=== PATIENT | male | born 1930 | race Caucasian/White ===

== ENCOUNTER 2018-11-13 15:17 | Inpatient (IN) | payer MEDICARE ==
[2018-11-13 21:51] LABS: Glucose,Whole Blood 158 mg/dL (75-99)
[2018-11-13 22:08] VITALS: BMI 29.4
[2018-11-14 05:42] LABS: Glucose,Whole Blood 199 mg/dL (75-99)
[2018-11-14 06:49] LABS: Basophils # (A) 0.1 k/uL (0-0.2); Basophils % (A) 1 %; Eosinophils # (A) 1.4 k/uL (0-0.7); Eosinophils % (A) 16 %; HCT 50.9 % (39.0-53.0); Hypochromasia Slight; Lymphocytes # (A) 0.4 k/uL (1.0-4.8); Lymphocytes % (A) 4 %; MCHC 31.4 g/dL (31.0-37.0); MCV 95.5 fL (80.0-100.0); Mean Platelet Volume 6.7; Monocytes # (A) 0.6 k/uL (0-1.0); Monocytes % (A) 7 %; Neutrophils % (A) 70 %; Platelet Count 274 k/uL (150-450); RBC 5.33 m/uL (4.30-5.90); RDW 14.8 % (11.5-15.5); WBC 8.6 k/uL (3.8-10.6)
[2018-11-14] MEDS: INSULIN ASPART (NovoLOG) 100 UNIT/ML VIAL SQ SCH ×5 (06:52→20:57)
[2018-11-14] MEDS: SODIUM CHLORIDE 0.9% 1,000 ML IV SCH ×3 (06:53→12:59)
[2018-11-14 07:02] LABS: Albumin 3.4 g/dL (3.5-5.0); Calcium 9.2 mg/dL (8.4-10.2); Potassium 4.2 mmol/L (3.5-5.1); Total Protein 6.1 g/dL (6.3-8.2)
[2018-11-14] MEDS ORDERED: ceFAZolin 1,000 MG in SODIUM CHLORIDE 0.9% IRRIGATIO 250 ML IRRIGATION ONE (07:54)
[2018-11-14] MEDS ORDERED: ceFAZolin IN SWFI 2 GM/20 ML SYRINGE IVP ONE (07:54)
--- NOTE | 2018-11-14 10:52 | P.CRDCN ---
History of Present Illness Consult date: 11/14/18 Requesting physician: Serene Lazaro Reason for Consult (text): Bradycardia Chief complaint: Dizziness History of present illness: This is a pleasant 87-year-old gentleman who follows regularly with Dr. Gonzalez in the office. He has known history of diabetes, hyperlipidemia, hypothyroidism, second-degree type I AV block. Patient has been experiencing symptoms of dizziness. He did have a Holter monitor performed by Dr. Gongora in the office which revealed frequent episodes of AV node Wenckebach block and one pause of 2.1 seconds. Heart rate was ranging from 35-105 bpm. The patient presented to [facility] with symptoms of dizziness and lightheadedness. Patient was apparently sitting on the side of his bed when the symptoms started, he did slump over somewhat on his bed but did not lose consciousness. He was brought to the emergency room [facility] for this reason. Blood pressure on arrival there 117/56, heart rate in the 50s, respirations 20, oxygen saturation 95%. White blood cell count 7.0, hemoglobin 15.5, platelet count 291. Sodium 137, potassium 3.9, BUN 26. CT of the head was also performed which did not reveal any evidence of intracranial hemorrhage or midline shift. There was mild to moderate diffuse age-related atrophy noted. Chest x-ray showed poor inspiration with mild cardiomegaly. EKG performed at [facility] showed a Wenchebach rhythm with a heart rate of 60. An echocardiogram with Doppler study was also performed there which revealed a normal left ventricular systolic function. The physician there did have a discussion with Dr. Gongora and the decision was made to transfer the patient here to [facility] for possible pacemaker implantation. EKG on arrival here showed a normal sinus rhythm with a second-degree type I rhythm. Rhythm strips here show a sinus bradycardia with first-degree AV block and intermittent second-degree type I. Blood pressure 118/60, heart rate mainly in the low 70s, at times down into the 50s. White blood cell count 8.6, hemoglobin 16.0, platelet count 274. Sodium 138, potassium 4.2, BUN 31 and creatinine 0.9. Past Medical History Past Medical History: Diabetes Mellitus, Hyperlipidemia, Hypertension, Skin Disorder Additional Past Medical History / Comment(s): PRP Skin disorder History of Any Multi-Drug Resistant Organisms: None Reported Past Surgical History: Joint Replacement Additional Past Surgical History / Comment(s): right hip replacement Past Anesthesia/Blood Transfusion Reactions: No Reported Reaction Past Psychological History: No Psychological Hx Reported Smoking Status: Former smoker Past Drug Use History: None Reported Medications and Allergies Home Medications Medication Instructions Recorded Confirmed Type Hydrochlorothiazide 25 mg PO DAILY 11/13/18 11/14/18 History ISOtretinoin [Myorisan] 30 mg PO TID 11/13/18 11/14/18 History Insulin Glargine,Hum.rec.anlog 22 units SQ HS 11/13/18 11/14/18 History [Lantus Solostar] Insulin Lispro [humaLOG Kwikpen] 14 units SQ AC-BRKFST 11/13/18 11/14/18 History Latanoprost/Pf [Latanoprost 0.005% 1 drop BOTH EYES HS 11/13/18 11/14/18 History Eye Drop] Levothyroxine Sodium [Synthroid] 112 mcg PO DAILY 11/13/18 11/14/18 History Lovastatin [Mevacor] 10 mg PO DAILY 11/13/18 11/14/18 History Pioglitazone [Actos] 30 mg PO DAILY 11/13/18 11/14/18 History Timolol 0.5% Ophth Soln [Timoptic 1 drop INTRAOCULA BID 11/13/18 11/14/18 History 0.5% Ophth Soln] metFORMIN HCL [Glucophage] 1,000 mg PO BID 11/13/18 11/14/18 History Acitretin 50 mg PO DAILY 11/14/18 11/14/18 History Atorvastatin [Lipitor] 10 mg PO DAILY 11/14/18 11/14/18 History Insulin Lispro [humaLOG Kwikpen] 5 unit SQ AC-LUNCH 11/14/18 11/14/18 History Insulin Lispro [humaLOG Kwikpen] 11 unit SQ AC-SUPPER 11/14/18 11/14/18 History Allergies Allergy/AdvReac Type Severity Reaction Status Date / Time No Known Allergies Allergy Verified 11/14/18 09:39 Physical Exam Vitals: Vital Signs Temp Pulse Resp BP Pulse Ox 11/14/18 08:00 96.9 F L 71 22 118/65 11/14/18 04:00 97.6 F 71 18 122/59 97 11/14/18 00:00 97.8 F 72 18 106/59 100 11/13/18 21:55 98.0 F 71 18 137/74 96 11/13/18 21:45 71 18 Intake and Output 11/13/18 11/14/18 11/14/18 22:59 06:59 14:59 Intake Total 80 Balance 80 Intake: IV 80 0.9 80 Other: Voiding Method Toilet Toilet Weight 93 kg 93.1 kg PHYSICAL EXAMINATION: GENERAL: 87-year-old gentleman in no acute distress at the time of my examination HEENT: Head is atraumatic, normocephalic. Pupils equal, round. Sclera anicteric. Conjunctiva are clear. Mucous membranes of the mouth are moist. Neck is supple. There is no elevated jugular venous pressure. No carotid bruit is heard. HEART EXAMINATION: Heart S1, S2 normal. No murmur or gallop heard. CHEST EXAMINATION: Lungs are clear to auscultation and precussion. No chest wall tenderness is noted on palpation or with deep breathing. ABDOMEN: Soft, nontender. Bowel sounds are heard. No organomegaly noted. EXTREMITIES: 2+ peripheral pulses with no evidence of peripheral edema and no calf tenderness noted. NEUROLOGIC patient is awake, alert and oriented 3 . . Results 11/14/18 05:19 11/14/18 05:19 Cardiac Enzymes 11/14/18 Range/Units 05: AST 27 (17-59) U/L CBC 11/14/18 Range/Units 05:19 WBC 8.6 (3.8-10.6) k/uL RBC 5.33 (4.30-5.90) m/uL Hgb 16.0 (13.0-17.5) gm/dL Hct 50.9 (39.0-53.0) % Plt Count 274 (150-450) k/uL Comprehensive Metabolic Panel 11/14/18 Range/Units 05:19 Sodium 138 (137-145) mmol/L Potassium 4.2 (3.5-5.1) mmol/L Chloride 104 (98-107) mmol/L Carbon Dioxide 24 (22-30) mmol/L BUN 31 H (9-20) mg/dL Creatinine 0.91 (0.66-1.25) mg/dL Glucose 220 H (74-99) mg/dL Calcium 9.2 (8.4-10.2) mg/dL AST 27 (17-59) U/L ALT 37 (21-72) U/L Alkaline Phosphatase 72 (38-126) U/L Total Protein 6.1 L (6.3-8.2) g/dL Albumin 3.4 L (3.5-5.0) g/dL Current Medications Generic Name Dose Route Start Last Admin Trade Name Stephan PRN Reason Stop Dose Admin Sodium Chloride 1,000 mls @ 20 mls/hr 11/13/18 23:15 11/14/18 06:53 Saline 0.9% IV 20 mls/hr .Q24H JOSE ANTONIO Administration Sodium Chloride 1,000 mls @ 50 mls/hr 11/14/18 08:00 Saline 0.9% IV .Q20H JOSE ANTONIO Sodium Chloride 1,000 mls @ 50 mls/hr 11/14/18 08:00 Saline 0.9% IV .Q20H JOSE ANTONIO Insulin Aspart 0 unit 11/14/18 07:30 11/14/18 06:52 Novolog SQ 2 unit ACHS JOSE ANTONIO Administration Protocol Intake and Output 11/13/18 11/14/18 11/14/18 22:59 06:59 14:59 Intake Total 80 Balance 80 Intake: IV 80 0.9 80 Other: Voiding Method Toilet Toilet Weight 93 kg 93.1 kg 11/14/18 05:19 11/14/18 05:19 EKG Interpretations (text) EKG shows a sinus rhythm with second-degree type I heart block Assessment and Plan Plan: Assessment and plan #1 symptoms of dizziness and lightheadedness, EKG shows a sinus rhythm with a second-degree type I heart block. Patient also had a monitor done in the office which revealed a second-degree type I heart block with a 2.1 second pause. #2 diabetes #3 hypertension #4 hyperlipidemia #5 hypothyroidism Plan Echocardiogram with Doppler study revealed a normal left ventricular systolic function. Patient has been encouraged to be up ambulating in the hallway today. He was seen this morning earlier by Dr. Gonzalez, who wanted him to be up ambulating in the [place], if the patient becomes symptomatic and is noted that his heart rate drops, he will be scheduled for pacemaker implantation. Further recommendations to follow. DNP note has been reviewed, I agree with a documented findings and plan of care. Patient was seen and examined.
[2018-11-14 12:14] LABS: Glucose,Whole Blood 249 mg/dL (75-99)
[2018-11-14] MEDS: PIOGLITAZONE 30 MG TAB PO SCH (12:48)
[2018-11-14] MEDS: TIMOLOL 0.5% OPHTH DROPS 5 ML BTL RIGHT EYE SCH ×2 (12:48→21:00)
--- NOTE | 2018-11-14 12:58 | P.HPIM ---
History of Present Illness H&P Date: 11/14/18 Chief Complaint: Dizziness This is a 87-year-old male, patient of Dr. Macias. He has a known past medical history of diabetes, hyperlipidemia, hypothyroidism and second-degree type I AV block. Patient has been experiencing dizziness and lightheadedness for the last week. Patient reports symptoms were worse when he stood up. He went to [facility] for further evaluation of his dizziness and lightheadedness. There was no loss of consciousness. Blood pressure was 117/ 56 heart rate in the 50s. Respirations in the 20s and oxygen saturation 95%. Computed tomography scan of the head at [facility] was negative for acute change. It did not reveal any evidence of intracranial hemorrhage or midline shift. There was mild to moderate age-related atrophy. Chest x-ray had shown cardiomegaly and atelectasis. EKG showed able to bounce rhythm with heart rate in the 60s. Echo had revealed a normal left ventricle systolic function. [facility] [place] and at [facility] discussed with Dr. Gongora and patient was then transferred to [facility] for evaluation for possible pacemaker implantation. EKG on arrival showed normal sinus rhythm with a second degree type I rhythm. Telemetry monitoring has shown sinus bradycardia with a first- degree AV block and intermittent secondary degree type I per cardiology. Patient did have heart rate in the 30s while sleeping. And has been maintaining in the 70s and has gone down to the 50s. White count 8.6, hemoglobin is 16.0-274. Creatinine is 0.9. Patient admitting to a cough that he has had for the last month with sinus congestion and runny nose. He reports that his sugars have also been plugged at times he cleared and he had flushed his ears on Sunday with some improvement in his dizziness. Patient denies any fever or chills or sweats. Denies any chest pain or shortness of breath. Denies any bowel movement changes or urinary symptoms. Patient does have a chronic rash on his back in which she follows with dermatology. Orthostatics have been ordered. Review of Systems Please refer to HPI otherwise unremarkable Past Medical History Past Medical History: Diabetes Mellitus, Hyperlipidemia, Hypertension, Skin Disorder Additional Past Medical History / Comment(s): PRP Skin disorder History of Any Multi-Drug Resistant Organisms: None Reported Past Surgical History: Joint Replacement Additional Past Surgical History / Comment(s): right hip replacement Past Anesthesia/Blood Transfusion Reactions: No Reported Reaction Past Psychological History: No Psychological Hx Reported Smoking Status: Former smoker Past Drug Use History: None Reported Medications and Allergies Home Medications Medication Instructions Recorded Confirmed Type Hydrochlorothiazide 25 mg PO DAILY 11/13/18 11/14/18 History ISOtretinoin [Myorisan] 30 mg PO TID 11/13/18 11/14/18 History Insulin Glargine,Hum.rec.anlog 22 units SQ HS 11/13/18 11/14/18 History [Lantus Solostar] Insulin Lispro [humaLOG Kwikpen] 14 units SQ AC-BRKFST 11/13/18 11/14/18 History Latanoprost/Pf [Latanoprost 0.005% 1 drop BOTH EYES HS 11/13/18 11/14/18 History Eye Drop] Levothyroxine Sodium [Synthroid] 112 mcg PO DAILY 11/13/18 11/14/18 History Lovastatin [Mevacor] 10 mg PO DAILY 11/13/18 11/14/18 History Pioglitazone [Actos] 30 mg PO DAILY 11/13/18 11/14/18 History Timolol 0.5% Ophth Soln [Timoptic 1 drop INTRAOCULA BID 11/13/18 11/14/18 History 0.5% Ophth Soln] metFORMIN HCL [Glucophage] 1,000 mg PO BID 11/13/18 11/14/18 History Acitretin 50 mg PO DAILY 11/14/18 11/14/18 History Atorvastatin [Lipitor] 10 mg PO DAILY 11/14/18 11/14/18 History Insulin Lispro [humaLOG Kwikpen] 5 unit SQ AC-LUNCH 11/14/18 11/14/18 History Insulin Lispro [humaLOG Kwikpen] 11 unit SQ AC-SUPPER 11/14/18 11/14/18 History Allergies Allergy/AdvReac Type Severity Reaction Status Date / Time No Known Allergies Allergy Verified 11/14/18 09:39 Physical Exam Vitals: Vital Signs Temp Pulse Resp BP Pulse Ox 11/14/18 08:50 71 18 11/14/18 08:00 96.9 F L 71 22 118/65 11/14/18 04:00 97.6 F 71 18 122/59 97 11/14/18 00:00 97.8 F 72 18 106/59 100 11/13/18 21:55 98.0 F 71 18 137/74 96 11/13/18 21:45 71 18 Intake and Output 11/13/18 11/14/18 11/14/18 22:59 06:59 14:59 Intake Total 80 Balance 80 Intake: IV 80 0.9 80 Other: Voiding Method Toilet Toilet Toilet Weight 93 kg 93.1 kg Head normocephalic Neck supple Lungs clear to auscultation bilaterally no wheezing or crackles Heart regular rate and rhythm S1-S2, no rub or gallop Abdomen is soft nontender nondistended positive bowel sounds no hepatosplenomegaly Extremities no edema Neuro alert and orientated to 3 Skin: Back red with known PRP skin disorder Results CBC & Chem 7: 11/14/18 05:19 11/14/18 05:19 Labs: Abnormal Lab Results - Last 24 Hours (Table) 11/13/18 11/14/18 11/14/18 Range/Units 21:49 05:19 05:19 Lymphocytes # 0.4 L (1.0-4.8) k/uL Eosinophils # 1.4 H (0-0.7) k/uL BUN 31 H (9-20) mg/dL Glucose 220 H (74-99) mg/dL POC Glucose (mg/dL) 158 H (75-99) mg/dL Total Protein 6.1 L (6.3-8.2) g/dL Albumin 3.4 L (3.5-5.0) g/dL 11/14/18 11/14/18 Range/Units 05:39 12:00 Lymphocytes # (1.0-4.8) k/uL Eosinophils # (0-0.7) k/uL BUN (9-20) mg/dL Glucose (74-99) mg/dL POC Glucose (mg/dL) 199 H 249 H (75-99) mg/dL Total Protein (6.3-8.2) g/dL Albumin (3.5-5.0) g/dL Thrombosis Risk Factor Assmnt - Choose All That Apply Any of the Below Risk Factors Present?: No Other Risk Factors: Yes Each Risk Factor Represents 2 Points: Age 61-74 years Other congenital or acquired thrombophilia - If yes, enter type in comment: No Thrombosis Risk Factor Assessment Total Risk Factor Score: 2 Thrombosis Risk Factor Assessment Level: Low Risk Assessment and Plan Assessment: 1. Dizziness and lightheadedness, EKG with sinus rhythm and second-degree type I heart block. Cardiology on consult. Evaluating for possible pacemaker placement. Continue telemetry monitoring. Check orthostatic blood pressure. Continue IV fluids. Hydrochlorothiazide currently on hold 2. Diabetes mellitus type 2: Resume Actos, metformin, NovoLog scheduled with meals, Lantus and add sliding scale coverage. No evidence of hypoglycemia. Check A1c 3. Essential hypertension 4. Hypothyroidism: Check TSH level 5. Hyperlipidemia 6. PRP chronic skin rash. Consult infectious disease GI prophylaxis Pepcid and DVT prophylaxis subcu heparin Time with Patient: Greater than 30 (Greater than 50% of the total time spent in counseling and coordination of care.I performed an examination of the patient and discussed their management with the physician Patient Care Technician Instructor. I have reviewed the Physician Patient Care Technician Instructor's notes and agree with the documented findings and plan of care)
[2018-11-14 14:59] LABS: Hemoglobin A1C 8.3 % (4.0-6.0)
[2018-11-14] MEDS ORDERED: LIDOCAINE 1% INJ 10MG/ML (20 ML MDV) ONE (15:49)
[2018-11-14] MEDS ORDERED: IV FLUID CONTINUATION 650 ML IV ONE (15:52)
[2018-11-14] MEDS ORDERED: MIDAZOLAM 2 MG/2 ML VIAL IVP ONE (16:09)
[2018-11-14] MEDS ORDERED: LIDOCAINE 1% INJ 10MG/ML (20 ML MDV) SQ ONE (16:19)
--- NOTE | 2018-11-14 16:41 | P.PCN ---
Preoperative Diagnosis: Loop monitor implant Primary physicians: Dr. Macias Air Pollution Inspector: Dr. Tsai Indication: Recurrent dizzy spells, AV node Wenckebach block, this line prolonged duration TX interval Patient was brought to the EP lab in a fasting state. Written informed consent was obtained prior to the procedure. The left pectoral area was prepped and draped per protocol. Intravenous antibiotic was administered preoperatively. A subcutaneous Loop monitor was implanted successfully and the wound was closed per protocol. The device was programmed to detect significant antonia- arrhythmic and tachy-arrhythmic events, per protocol. Device and programming details: Bradycardia protocol 6 be protocol Patient underwent EP procedure under conscious sedation/moderate sedation, monitoring of the level of consciousness and physiologic parameters including but not limited to vital signs and oxygenation. Patient tolerated the procedure well without any acute complications. Start time: 1616 Stop time: 162 Plan I explained to the patient that he has an abnormal AV node function with AV node Wenckebach block and first-degree AV block and his dizzy spells appear vertiginous or benign positional vertigo in nature. However a loop monitor is being implanted to correlate his dizziness with significant bradycardia He will also keep track of when he takes a nap in the afternoon because he has bradycardia with AV node Wenckebach block and sometimes 2-1 AV block while sleeping
[2018-11-14] MEDS ORDERED: INSULIN ASPART (NovoLOG) 100 UNIT/ML VIAL SQ SCH (17:30)
[2018-11-14 17:40] LABS: Glucose,Whole Blood 193 mg/dL (75-99)
[2018-11-14] MEDS: LEVOTHYROXINE 112 MCG TAB PO SCH (17:50)
[2018-11-14] MEDS: metFORMIN 500 MG TAB PO SCH (17:50)
[2018-11-14 20:37] LABS: Glucose,Whole Blood 146 mg/dL (75-99)
[2018-11-14] MEDS: HEPARIN SODIUM,PORCINE 5,000 UNIT/ML 1 ML VIAL SQ SCH (20:57)
[2018-11-14] MEDS ORDERED: INSULIN DETEMIR (LEVEMIR) 100 UNIT/ML SYR SQ SCH (21:00)
[2018-11-14] MEDS ORDERED: LATANOPROST 0.005% OPHTH DROPS 2.5 ML BTL BOTH EYES SCH (21:00)
[2018-11-14] MEDS ORDERED: hydrOXYzine HCL 25 MG TAB PO PRN (23:39)
[2018-11-15] MEDS: SODIUM CHLORIDE 0.9% 1,000 ML IV SCH ×3 (01:26)
[2018-11-15 06:10] LABS: Glucose,Whole Blood 108 mg/dL (75-99)
[2018-11-15 06:13] LABS: Basophils % (A) 1 %; Eosinophils # (A) 1.1 k/uL (0-0.7); Eosinophils % (A) 16 %; HCT 51.1 % (39.0-53.0); HGB 16.3 gm/dL (13.0-17.5); Hypochromasia Slight; Lymphocytes # (A) 0.4 k/uL (1.0-4.8); Lymphocytes % (A) 5 %; MCH 30.4 pg (25.0-35.0); MCHC 31.9 g/dL (31.0-37.0); MCV 95.4 fL (80.0-100.0); Mean Platelet Volume 6.6; Monocytes # (A) 0.4 k/uL (0-1.0); Monocytes % (A) 6 %; Neutrophils % (A) 71 %; Platelet Count 352 k/uL (150-450); RBC 5.36 m/uL (4.30-5.90); RDW 15.1 % (11.5-15.5)
[2018-11-15] MEDS: INSULIN ASPART (NovoLOG) 100 UNIT/ML VIAL SQ SCH ×3 (06:15→13:08)
[2018-11-15 06:27] LABS: Albumin 3.5 g/dL (3.5-5.0); Calcium 8.9 mg/dL (8.4-10.2); Potassium 3.6 mmol/L (3.5-5.1); Total Bilirubin 0.8 mg/dL (0.2-1.3); Total Protein 6.4 g/dL (6.3-8.2)
[2018-11-15] MEDS: metFORMIN 500 MG TAB PO SCH (06:49)
[2018-11-15] MEDS: LEVOTHYROXINE 112 MCG TAB PO SCH (06:49)
[2018-11-15] MEDS ORDERED: INSULIN ASPART (NovoLOG) 100 UNIT/ML VIAL SQ SCH (07:30)
[2018-11-15] MEDS ORDERED: ATORVASTATIN 10 MG TAB PO SCH ×2 (09:00)
[2018-11-15] MEDS ORDERED: FAMOTIDINE 20 MG TAB PO SCH (09:00)
[2018-11-15] MEDS: HEPARIN SODIUM,PORCINE 5,000 UNIT/ML 1 ML VIAL SQ SCH (09:30)
[2018-11-15] MEDS: PIOGLITAZONE 30 MG TAB PO SCH (09:31)
[2018-11-15] MEDS: TIMOLOL 0.5% OPHTH DROPS 5 ML BTL RIGHT EYE SCH (09:32)
--- NOTE | 2018-11-15 09:48 | CONS ---
CONSULTATION DATE OF SERVICE: 11/14/2018. REASON FOR CONSULTATION: Rash. HISTORY OF PRESENT ILLNESS: The patient is an 87-year-old male who recently presented to the [facility] ER with chief complaint of feeling dizzy. The patient did have an episode of vomiting on evaluation in the [facility] ER. The patient noticed to be in Mobitz type 1 heart block. The patient did have a negative cardiac enzymes and he did have an echocardiogram that did show normal EF. The patient subsequently was transferred down to the [facility] for possible consideration of a pacemaker placement. Patient was evaluated by Cardiology, did have loop recorder placed. The patient did have history of disease chronic rash to his skin for which the patient currently under care of Dr. Art Wylie in the outpatient setting and has been tried on isotretinoin and acitretin. The patient does have a problem with itching, however, denies any worsening itching since the patient has been in the hospital. No worsening rash has been noticed. Denies any fever or chills. No nausea, vomiting. No chest pain, shortness of breath or cough. I was asked to see the patient for management of underlying skin condition. REVIEW OF SYSTEMS: Positive points have been mentioned in HPI. Rest of systems has been negative. PAST MEDICAL HISTORY: Insulin-dependent diabetes mellitus, hypertension, hyperlipidemia, skin disorder. PAST SURGICAL HISTORY: Right hip replacement. SOCIAL HISTORY: Remote history of smoking. No drinking or drug use. FAMILY HISTORY: No pertinent findings noticed. ALLERGIES: No known drug allergies. MEDICATIONS: Medications include the patient is currently on Lipitor, Pepcid, heparin, NovoLog, Levemir, Synthroid, Glucophage, isotretinoin 30 mg 3 times a day, acitretin 50 mg daily, Actos, Timoptic drop. PHYSICAL EXAMINATION: On examination, blood pressure is 131/76, pulse 84, temperature 98.2. He is 96% on room air. General description is an elderly male lying in bed in no distress. HEENT examination shows no pallor or scleral icterus. Oral mucous membrane is dry. No pharyngeal erythema or thrush. NECK: Trachea central. No thyromegaly. LUNGS: Unlabored breathing, clear to auscultation. No wheeze or crackle. HEART: S1, S2. Regular rate and rhythm. ABDOMEN: Soft, no tenderness. No guarding or rigidity. EXTREMITIES: No edema of feet. Skin examination shows a chronic rash with aforementioned skin ulceration. NEUROLOGICAL: Patient is awake, alert, oriented x3. Mood and affect normal. LABS: Hemoglobin is 16, white count of 8.6, BUN of 31, creatinine 0.91. DIAGNOSTIC IMPRESSION AND PLAN: Patient with chronic rash. This appears to be disease for which the patient has been in the outpatient setting on isotretinoin and acitretin per his behavioral therapist, currently with no worsening of the rash or any evidence of secondary bacterial cellulitis. PLAN: 1. The patient will be able to continue his home medication in the form of Myorisan and acitretin. 2. We will add Atarax for symptomatology relief of itching. 3. We will follow up on clinical condition and further adjust medication if needed. Thank you for this consultation. Will follow this patient along with you. MMRANJANAL / IJN: [id number] /
[2018-11-15 11:29] LABS: Glucose,Whole Blood 109 mg/dL (75-99)
--- NOTE | 2018-11-15 12:30 | PN ---
PROGRESS NOTE Mr. Cantu is an 87-year-old male who was admitted because of symptoms of dizziness. He was transferred from [facility]. He is doing well this morning, ambulating without difficulty. While sleeping he has bradycardia, but during the day his activity is stable without any issue. He denies any chest pain or dizziness. He denies any nausea. He had a loop recorder implanted yesterday. He continues to be at this time on Lipitor 10 mg daily, insulin, metformin. PHYSICAL EXAMINATION: Blood pressure 138/70 with a heart rate in the 90s. LUNGS: Clear. HEART: Regular rate and rhythm, S1, S2. No S3 with systolic murmur. no diastolic murmur. ABDOMEN: Soft, nontender. EXTREMITIES: No edema. LAB DATA: Revealed BUN and creatinine 25 and 0.93, potassium 3.6. IMPRESSION: 1. Episode of sinus bradycardia with 2-1 block, Mobitz type 1. 2. History of diabetes. 3. Hypertension. RECOMMENDATION: From the cardiac standpoint, he should be able to be discharged home today and followed as an outpatient with Dr. Gonzalez to interrogate the loop recorder and if he has significant persistent bradycardia, then a pacemaker will be implanted. MMODL / IJN: [id number] /
[2018-11-15 12:40] VITALS: BP 157/74; PULSE 72; RESP 18; TEMP 96.7
--- NOTE | 2018-11-15 13:42 | P.DS ---
Providers Date of admission: 11/13/18 21:39 Expected date of discharge: 11/15/18 Attending physician: Serene Lazaro Consults: 11/13/18 23:00 Consult Physician Routine Consulting Provider: Agata Jimenez Consult Reason/Comments: Bradycardia Do you want consulting provider notified?: Yes, Notify in am 11/14/18 12:32 Consult Physician Routine Consulting Provider: Sylvia Macias Consult Reason/Comments: rash Do you want consulting provider notified?: Yes Primary care physician: Sylvia Macias Hospital Course: Discharge diagnosis 1. Dizziness and lightheadedness, EKG with sinus bradycardia with 2 to one block, Mobitz type I. Patient underwent loop recorder placement. Patient has been cleared by cardiology for discharge. 2. Diabetes mellitus type 2: Resume Actos, metformin, NovoLog scheduled with meals, Lantus and add sliding scale coverage. No evidence of hypoglycemia. A1c 8.3 3. Essential hypertension 4. Hypothyroidism: TSH within normal range 5. Hyperlipidemia 6. PRP chronic skin rash. Consult infectious disease Hospital course This is a 87-year-old male, patient of Dr. Macias. He has a known past medical history of diabetes, hyperlipidemia, hypothyroidism and second-degree type I AV block. Patient has been experiencing dizziness and lightheadedness for the last week. Patient reports symptoms were worse when he stood up. He went to [facility] for further evaluation of his dizziness and lightheadedness. There was no loss of consciousness. Blood pressure was 117/ 56 heart rate in the 50s. Respirations in the 20s and oxygen saturation 95%. Computed tomography scan of the head at [facility] was negative for acute change. It did not reveal any evidence of intracranial hemorrhage or midline shift. There was mild to moderate age-related atrophy. Chest x-ray had shown cardiomegaly and atelectasis. EKG showed able to bounce rhythm with heart rate in the 60s. Echo had revealed a normal left ventricle systolic function. Fish dish and at [facility] discussed with Dr. Gongora and patient was then transferred to [facility] for evaluation for possible pacemaker implantation. EKG on arrival showed normal sinus rhythm with a second degree type I rhythm. Telemetry monitoring has shown sinus bradycardia with a first- degree AV block and intermittent secondary degree type I per cardiology. Patient did have heart rate in the 30s while sleeping. And has been maintaining in the 70s and has gone down to the 50s. White count 8.6, hemoglobin is 16.0-274. Creatinine is 0.9. Patient admitting to a cough that he has had for the last month with sinus congestion and runny nose. He reports that his sugars have also been plugged at times he cleared and he had flushed his ears on Sunday with some improvement in his dizziness. Patient denies any fever or chills or sweats. Denies any chest pain or shortness of breath. Denies any bowel movement changes or urinary symptoms. Patient does have a chronic rash on his back in which she follows with dermatology. 11/15/2018 patient's dizziness has resolved. Orthostatics were negative. Patient had loop recorder placed yesterday. Cardiology has cleared patient for discharge. He will have the loop recorder interrogated with Dr. Gonzalez in the office. If there is any evidence of significant persistent bradycardia then he is make her will be implanted per cardiology recommendations. Patient is eager for discharge home. Symptoms have resolved. I performed an examination of the patient and discussed their management with the physician Jewelry Engraver. I have reviewed the Physician Jewelry Engraver's notes and agree with the documented findings and plan of care Patient Condition at Discharge: Stable Plan - Discharge Summary Discharge Rx Participant: No New Discharge Prescriptions: Continue metFORMIN HCL [Glucophage] 1,000 mg PO BID Hydrochlorothiazide 25 mg PO DAILY Insulin Glargine,Hum.rec.anlog [Lantus Solostar] 22 units SQ HS Levothyroxine Sodium [Synthroid] 112 mcg PO DAILY Lovastatin [Mevacor] 10 mg PO DAILY Insulin Lispro [humaLOG Kwikpen] 14 units SQ AC-BRKFST Latanoprost/Pf [Latanoprost 0.005% Eye Drop] 1 drop BOTH EYES HS ISOtretinoin [Myorisan] 30 mg PO TID Pioglitazone [Actos] 30 mg PO DAILY Timolol 0.5% Ophth Soln [Timoptic 0.5% Ophth Soln] 1 drop INTRAOCULA BID Atorvastatin [Lipitor] 10 mg PO DAILY Acitretin 50 mg PO DAILY Insulin Lispro [humaLOG Kwikpen] 5 unit SQ AC-LUNCH Insulin Lispro [humaLOG Kwikpen] 11 unit SQ AC-SUPPER Discharge Medication List Hydrochlorothiazide 25 mg PO DAILY 11/13/18 [History] ISOtretinoin [Myorisan] 30 mg PO TID 11/13/18 [History] Insulin Glargine,Hum.rec.anlog [Lantus Solostar] 22 units SQ HS 11/13/18 [ History] Insulin Lispro [humaLOG Kwikpen] 14 units SQ AC-BRKFST 11/13/18 [History] Latanoprost/Pf [Latanoprost 0.005% Eye Drop] 1 drop BOTH EYES HS 11/13/18 [ History] Levothyroxine Sodium [Synthroid] 112 mcg PO DAILY 11/13/18 [History] Lovastatin [Mevacor] 10 mg PO DAILY 11/13/18 [History] Pioglitazone [Actos] 30 mg PO DAILY 11/13/18 [History] Timolol 0.5% Ophth Soln [Timoptic 0.5% Ophth Soln] 1 drop INTRAOCULA BID [History] metFORMIN HCL [Glucophage] 1,000 mg PO BID 11/13/18 [History] Acitretin 50 mg PO DAILY 11/14/18 [History] Atorvastatin [Lipitor] 10 mg PO DAILY 11/14/18 [History] Insulin Lispro [humaLOG Kwikpen] 5 unit SQ AC-LUNCH 11/14/18 [History] Insulin Lispro [humaLOG Kwikpen] 11 unit SQ AC-SUPPER 11/14/18 [History] Follow up Appointment(s)/Referral(s): Dillon Gonzalez MD [STAFF PHYSICIAN] - 1 Week (Suture removal in the device clinic in 5 days - office will call patient to schedule appointment. Keep wound dry for [address] Tsai in about 2-3 months or as previously scheduled - Office says patient has future appointment scheduled on December 11 at 0930.) Nonstaff,Physician [REFERRING] - 1 Week (Please follow-up with primary physician in a week.) Patient Instructions/Handouts: Heart Healthy Diet (DC), Bradycardia (DC), Cardiac Loop Recorder Insertion (DC) Activity/Diet/Wound Care/Special Instructions: Keep wound dry for 5 days Patient may go home from an EP standpoint Diet: cardiac, diabetic Activity: as tolerated Discharge Disposition: HOME SELF-CARE
--- NOTE | 2018-11-15 15:42 | PN ---
PROGRESS NOTE DATE OF SERVICE: 11/15/2018. REASON FOR FOLLOWUP: Rash and itching. INTERVAL HISTORY: The patient is afebrile. Has been breathing comfortably. Denies any chest pain, cough. No dizziness or syncopal episode. No nausea, vomiting. No abdominal pain. No diarrhea or any worsening itching. PHYSICAL EXAMINATION: Blood pressure 157/74 with a pulse of 72, temp 96.7. General description is an elderly male lying in bed in no distress. Respiratory system: Unlabored breathing. Clear to auscultation anteriorly. Heart S1, S2. Regular rate and rhythm. Abdomen soft, no tenderness. Skin examination: Rash but no worsening. LABS: Hemoglobin is 15.8, white count 7.0, BUN of 25, creatinine 0.93. DIAGNOSTIC IMPRESSION AND PLAN: Patient with a rash, more likely related to his disease for which the patient will continue on his medication with Atarax as needed for itching. Continue supportive care. MMODL / IJN: [id number] /
== END 2018-11-15 15:00 | disposition home or self-care (01) | DRG 261 ==
LOC: 3SCARD 21:39
PROVIDERS: ADMIT Internal Medicine; ATTEND Internal Medicine
PROC: 0JH602Z Insertion of Monitoring Device into Chest Subcutaneous Tissue and Fascia, Open Approach (ICD-10-PCS; principal; 2018-11-14 09:45)
DX: I44.1 Atrioventricular block, second degree (principal); J98.11 Atelectasis; R00.1 Bradycardia, unspecified; I11.9 Hypertensive heart disease without heart failure; E11.9 Type 2 diabetes mellitus without complications; E03.9 Hypothyroidism, unspecified; E78.5 Hyperlipidemia, unspecified; L44.0 Pityriasis rubra pilaris; Z79.4 Long term (current) use of insulin; Z79.890 Hormone replacement therapy; Z79.899 Other long term (current) drug therapy; Z96.641 Presence of right artificial hip joint; Z87.891 Personal history of nicotine dependence
CPT/HCPCS: 33285; 80053; 83036; 84439; 84443; 85025

== ENCOUNTER 2019-01-27 08:20 | Day surgery (SDC) | payer MEDICARE ==
[2019-01-21 15:08] VITALS: BMI 29.4
[~2019-01-27 08:20] MED LIST: LACTATED RINGERS 1,000 ML IV SCH; SODIUM CHLORIDE 0.9% 1,000 ML IV SCH; ceFAZolin IN SWFI 2 GM/20 ML SYRINGE IVP ONE
[2019-01-27] MEDS: INSULIN ASPART (NovoLOG) 100 UNIT/ML VIAL SQ SCH ×4 (09:21→21:11)
[2019-01-27 09:23] LABS: Glucose,Whole Blood 209 mg/dL (75-99)
[2019-01-27 09:26] LABS: Basophils # (A) 0.1 k/uL (0-0.2); Basophils % (A) 1 %; Eosinophils # (A) 1.1 k/uL (0-0.7); Eosinophils % (A) 17 %; HCT 45.5 % (39.0-53.0); HGB 14.5 gm/dL (13.0-17.5); Lymphocytes # (A) 0.4 k/uL (1.0-4.8); Lymphocytes % (A) 6 %; MCH 29.8 pg (25.0-35.0); MCHC 31.9 g/dL (31.0-37.0); MCV 93.4 fL (80.0-100.0); Mean Platelet Volume 6.9; Monocytes # (A) 0.5 k/uL (0-1.0); Monocytes % (A) 7 %; Neutrophils # (A) 4.5 k/uL (1.3-7.7); Neutrophils % (A) 67 %; Platelet Count 292 k/uL (150-450); RBC 4.88 m/uL (4.30-5.90); RDW 15.1 % (11.5-15.5); WBC 6.7 k/uL (3.8-10.6)
[2019-01-27] MEDS ORDERED: PROPOFOL 10 MG/ML 20 ML VIAL IV ONE (10:13)
[2019-01-27] MEDS ORDERED: MIDAZOLAM 2 MG/2 ML VIAL ONE (10:13)
[2019-01-27] MEDS ORDERED: fentaNYL (PF) 50 MCG/ML 2 ML AMP ONE (10:13)
[2019-01-27] MEDS ORDERED: IOPAMIDOL-250 50ML BTL IV ONE (10:32)
[2019-01-27] MEDS ORDERED: LIDOCAINE 1% INJ 10MG/ML (20 ML MDV) ONE ×2 (10:39→11:11)
[2019-01-27] MEDS: ceFAZolin 1,000 MG in SODIUM CHLORIDE 0.9% IRRIGATIO 250 ML IRRIGATION ONE ×2 (10:58→12:46)
[2019-01-27] MEDS ORDERED: LIDOCAINE 1% INJ 10MG/ML (20 ML MDV) SQ ONE ×2 (11:02→13:16)
[2019-01-27] MEDS ORDERED: HYDROcodone/APAP 5-325MG 1 EACH TAB PO PRN (12:59)
[2019-01-27] MEDS ORDERED: ACETAMINOPHEN TAB 325 MG TAB PO PRN (12:59)
--- NOTE | 2019-01-27 13:05 | P.PCN ---
Preoperative Diagnosis: Diagnosis Recurrent dizzy spells Bradycardia during the daytime Advanced AV block Diabetes type 2 Hypertension Anticipated RV pacing percentage with standard dual-chamber pacing is expected to be high and close to 100% A biventricular pacemaker was implanted with physiologic septal pacing He had an enlarged RV and right atrium Placement of the right ventricular lead was difficult and was finally placed in the septum of the right ventricle after multiple attempts into the apex as well as the low septum Placement of the His bundle lead was also difficult despite obtaining a good history no. Final outcome was excellent with nonselective capture
--- NOTE | 2019-01-27 13:07 | P.PRLE ---
RE: AlondraWero Dear Dr. Macias Mr. Cantu underwent biventricular permanent pacemaker implantation for management of significant daytime bradycardia associated with symptoms and advanced AV block to minimize future RV pacing percentage. He underwent implantation of a His bundle lead Patients with AV node disease or severe bradycardia, in whom the anticipated right ventricular pacing percentage will be high with standard dual-chamber pacing are at a disadvantage since RV pacing over years promotes LV systolic dysfunction and heart failure as well as increased episodes of atrial fibrillation. Biventricular pacing either using an LV lead in the coronary epicardial veins or His bundle pacing promotes a synchronized LV contraction and preserves LV systolic function with reduction in heart failure. One advantage of His bundle pacing is that it promotes conduction down both the normal bundles, simulating intrinsic conduction and preserving LV systolic function This is especially so in patients who already have LV dysfunction We will continue to follow with you and myself Thank you for entrusting me with the care of the patient Warm regards Sincerely Dillon Gonzalez
[2019-01-27] MEDS: amLODIPine 5 MG TAB PO SCH (14:30)
--- NOTE | 2019-01-27 14:56 | PCN ---
PROCEDURE NOTE Mr. Cantu is an 88-year-old male patient who has had recurrent dizzy spells, significant daytime bradycardia, both on account of sick sinus syndrome, but also predominantly on account of significant AV node disease. His baseline BUN interval was prolonged with at 2-1 block intermittently. His anticipated RV pacing percentage almost 100% with dual-chamber pacing. A biventricular pacemaker was advised. Patient was brought to the EP lab in a fasting state. Written informed consent was obtained prior to the procedure. The left shoulder area was prepped and draped as per protocol. 1% lidocaine was used for local anesthesia. A 4 cm incision was made parallel to the deltopectoral groove, about 1.5 cm medial to it. The incision was carried down to the pectoralis muscle. A subfascial pocket was made. Hemostasis was assured. The left axillary vein was accessed at three separate points under fluoroscopy and via appropriately-sized introducer sheaths. Three leads were positioned in the right heart. The atrial lead was a Medtronic 52 cm, model #5076, serial #[id number]. This was screwed in the right atrial appendage. P waves 1.5 mV. Pacing impedance 620 ohms, pacing threshold 2 V at 0.5 milliseconds, 10 V test negative. The RV lead was positioned in the low RV septum. This was a 58 cm, model #5076 serial #[id number]. R-waves 4 mV. Pacing impedance 1083 ohms, pacing threshold 0.7 V at 0.5 milliseconds, 10 V test negative. The right ventricular lead positioning was difficult. The patient had a boot-shaped heart with RV enlargement and the lead would not slip into the RV apex. After multiple times, we positioned in the low RV septum to avoid the anterior RV wall. Physiologic septal pacing was performed. HIS bundle lead Medtronic model ##3830, 69 cm in length and serial #[id number] was positioned in the HIS bundle area. The HIS bundle area was mapped extensively and despite obtaining good HIS bundle signals on multiple attempts, there was mostly ventricular capture noted. Finally, we were able to get a position that showed nonselective HIS bundle capture at high outputs up to 4 V at 1 millisecond and this position was excepted. All leads were secured to the underlying pectoralis fascia using 2 nonabsorbable sutures. Pocket was irrigated with antibiotic solution. Leads were connected to the generator (Bi V pacemaker [employer] model number [id number] and the lead and generator were then placed in subfascial pocket. The wound was closed in 3 layers and dressed per protocol. The device was then programmed to DDD R mode with an AV delay of 150 milliseconds with an LV RV offset of 50 milliseconds to promote biventricular pacing. The patient tolerated the procedure well without any acute complication. MMRANJANAL / IJN: [id number] /
[2019-01-27] MEDS ORDERED: ACETAMINOPHEN IV (For NPO) 1,000 MG in EMPTY BAG 1 BAG IVPB ONE (15:00)
[2019-01-27 15:14] LABS: Glucose,Whole Blood 213 mg/dL (75-99)
[2019-01-27] MEDS: HYDROCHLOROTHIAZIDE 25 MG TAB PO SCH (16:25)
[2019-01-27] MEDS: ceFAZolin IN SWFI 2 GM/20 ML SYRINGE IVP SCH ×2 (16:25→22:25)
[2019-01-27 16:47] LABS: Glucose,Whole Blood 209 mg/dL (75-99)
[2019-01-27] MEDS ORDERED: INSULIN ASPART (NovoLOG) 100 UNIT/ML VIAL SQ SCH (17:30)
[2019-01-27 20:25] LABS: Glucose,Whole Blood 311 mg/dL (75-99)
[2019-01-27] MEDS ORDERED: LATANOPROST 0.005% OPHTH DROPS 2.5 ML BTL BOTH EYES SCH (21:00)
[2019-01-27] MEDS ORDERED: INSULIN DETEMIR (LEVEMIR) 100 UNIT/ML SYR SQ SCH (21:00)
[2019-01-27] MEDS: TIMOLOL 0.5% OPHTH DROPS 5 ML BTL BOTH EYES SCH (21:12)
[2019-01-28] MEDS: ISOTRETINOIN 30 MG PO SCH ×2 (01:06→08:25)
[2019-01-28 04:03] VITALS: RESP 16
[2019-01-28] MEDS: ceFAZolin IN SWFI 2 GM/20 ML SYRINGE IVP SCH ×2 (04:45→10:38)
[2019-01-28] MEDS ORDERED: LEVOTHYROXINE 112 MCG TAB PO SCH (06:30)
[2019-01-28 06:45] LABS: Glucose,Whole Blood 220 mg/dL (75-99)
[2019-01-28] MEDS ORDERED: INSULIN ASPART (NovoLOG) 100 UNIT/ML VIAL SQ SCH ×2 (07:30→12:30)
[2019-01-28] MEDS: HYDROCHLOROTHIAZIDE 25 MG TAB PO SCH (08:13)
[2019-01-28] MEDS: amLODIPine 5 MG TAB PO SCH (08:17)
[2019-01-28] MEDS: INSULIN ASPART (NovoLOG) 100 UNIT/ML VIAL SQ SCH (08:17)
--- NOTE | 2019-01-28 08:38 | XR ---
EXAMINATION TYPE: XR chest 2V DATE OF EXAM: 01/28/2019 COMPARISON: NONE HISTORY: Lead placement check TECHNIQUE: Frontal and lateral views of the chest are obtained. FINDINGS: Multilead left-sided cardiac device is seen with ventricular leads and sinoatrial lead. Os seous demineralization is present. Moderate multilevel degenerative changes of the thoracic spine are noted. Multifocal linear atelectasis is seen. No focal consolidation. No postprocedural pneumothorax . IMPRESSION: Multi lead left-sided cardiac device insertion with no postprocedural pneumothorax. Mult ifocal subsegmental atelectasis.
[2019-01-28] MEDS ORDERED: HYDROCHLOROTHIAZIDE 25 MG TAB PO SCH (09:00)
[2019-01-28] MEDS ORDERED: ATORVASTATIN 10 MG TAB PO SCH (09:00)
[2019-01-28] MEDS ORDERED: PIOGLITAZONE 30 MG TAB PO SCH (09:00)
[2019-01-28] MEDS ORDERED: ACITRETIN PO SCH (09:00)
[2019-01-28 11:33] VITALS: BP 163/89; PULSE 67; TEMP 97.5
[2019-01-28] MEDS: TIMOLOL 0.5% OPHTH DROPS 5 ML BTL BOTH EYES SCH (12:12)
[2019-01-28 12:14] LABS: Glucose,Whole Blood 156 mg/dL (75-99)
[2019-01-29] MEDS ORDERED: metFORMIN 500 MG TAB PO SCH (21:00)
== END 2019-01-28 13:00 | disposition home or self-care (01) ==
LOC: CATHEP 08:20 → 1SOBS 14:27 → CATHEP 01-28 13:00
PROVIDERS: ATTEND Internal Medicine Clinical Cardiac Electrophysiology
DX: I44.1 Atrioventricular block, second degree (principal); I49.5 Sick sinus syndrome; I11.9 Hypertensive heart disease without heart failure; E11.51 Type 2 diabetes mellitus with diabetic peripheral angiopathy without gangrene; E78.5 Hyperlipidemia, unspecified; Z82.49 Family history of ischemic heart disease and other diseases of the circulatory system; Z79.82 Long term (current) use of aspirin; Z79.890 Hormone replacement therapy; Z79.4 Long term (current) use of insulin; Z79.899 Other long term (current) drug therapy
CPT/HCPCS: 33225; 33208; 85025; 71046; C1769 ×3; C1892; C1898; C2621; J2250; J0690 ×3; J2001; J3010; J2704; Q9966

== ENCOUNTER 2019-07-24 13:33 | Inpatient (IN) | payer MEDICARE ==
--- NOTE | 2019-07-24 13:53 | ED ---
General Adult HPI - General Stated complaint: Poss NM Time Seen by Provider: 07/24/19 13:33 Source: RN notes reviewed, old records reviewed - History of Present Illness Initial comments: This is an 88-year-old male who presents to the emergency department patient comes to us from [facility]. Patient states he went to [facility] this morning because he was having intermittent chest pain for the last 2 weeks. Patient states the chest pain lasted between 10 and 15 minutes at a time and it radiates down his left arm. Patient states he was mildly short of breath on occasion. Patient denies any chest pain currently. According to the doctor at [facility] the patient's troponin was 0.3 and he could not determine any EKG changes because the patient a paced rhythm. Patient denies any fever chills or cough patient denies any palpitations. Patient denies any abdominal pain patient denies nausea vomiting diarrhea. Patient denies headache patient denies numbness weakness. Patient d enies any lightheadedness dizziness or near syncopal episode. Patient states she's got chronic swelling to the legs but is no worse today than any other day. - Related Data Home Medications Medication Instructions Recorded Confirmed Insulin Glargine,Hum.rec.anlog 22 units SQ HS 11/13/18 07/24/19 [Lantus Solostar] Latanoprost/Pf [Latanoprost 0.005% 1 drop BOTH EYES HS 11/13/18 07/24/19 Eye Drop] Levothyroxine Sodium [Synthroid] 112 mcg PO DAILY 11/13/18 07/24/19 Pioglitazone [Actos] 30 mg PO DAILY 11/13/18 07/24/19 Timolol 0.5% Ophth Soln [Timoptic 1 drop BOTH EYES BID 11/13/18 07/24/19 0.5% Ophth Soln] metFORMIN HCL [Glucophage] 1,000 mg PO BID 11/13/18 07/24/19 Acitretin 50 mg PO DAILY 11/14/18 07/24/19 Atorvastatin [Lipitor] 10 mg PO DAILY 11/14/18 07/24/19 amLODIPine [Norvasc] 5 mg PO DAILY 01/28/19 07/24/19 Hydrochlorothiazide [Hydrodiuril] 50 mg PO DAILY 07/24/19 07/24/19 Insulin Aspart [NovoLOG Flexpen] 5 units SQ AC-LUNCH 07/24/19 07/24/19 Insulin Aspart [NovoLOG Flexpen] 11 units SQ AC-SUPPER 07/24/19 07/24/19 Insulin Aspart [NovoLOG Flexpen] 14 units SQ AC-BRKFST 07/24/19 07/24/19 Meloxicam [Mobic] 15 mg PO DAILY 07/24/19 07/24/19 Allergies Allergy/AdvReac Type Severity Reaction Status Date / Time No Known Allergies Allergy Verified 07/24/19 15:39 Review of Systems ROS Statement: Those systems with pertinent positive or pertinent negative responses have been documented in the HPI. ROS Other: All systems not noted in ROS Statement are negative. Past Medical History Past Medical History: Diabetes Mellitus, Hyperlipidemia, Hypertension, Skin Disorder Additional Past Medical History / Comment(s): See Dr Gonzalez's H&&P,PRP Skin disorder History of Any Multi-Drug Resistant Organisms: None Reported Past Surgical History: Joint Replacement Additional Past Surgical History / Comment(s): right hip replacement Past Anesthesia/Blood Transfusion Reactions: No Reported Reaction Additional Past Anesthesia/Blood Transfusion Reaction / Comment(s): no problem with prior blood transfusion Past Psychological History: No Psychological Hx Reported Smoking Status: Never smoker Past Alcohol Use History: None Reported Additional Past Alcohol Use History / Comment(s): quit smoking approx 60 years ago during [place] War. Past Drug Use History: None Reported - Past Family History Mother Family Medical History: No Reported History Father Family Medical History: Cancer General Exam - General Exam Comments Initial Comments: GENERAL: Patient is well-developed and well-nourished. Patient is nontoxic and well- hydrated and is in no acute distress. ENT: Neck is soft and supple. No significant lymphadenopathy is noted. Oropharynx is clear. Moist mucous membranes. Neck has full range of motion without eliciting any pain. EYES: The sclera were anicteric and conjunctiva were pink and moist. Extraocular movements were intact and pupils were equal round and reactive to light. Eyelids were unremarkable. PULMONARY: Unlabored respirations. Good breath sounds bilaterally. No audible rales rhonchi or wheezing was noted. CARDIOVASCULAR: There is a regular rate and rhythm without any murmurs gallops or rubs. ABDOMEN: Soft and nontender with normal bowel sounds. No palpable organomegaly was noted. There is no palpable pulsatile mass. SKIN: Skin is clear with no lesions or rashes and otherwise unremarkable. NEUROLOGIC: Patient is alert and oriented x3. Cranial nerves II through XII are grossly intact. Motor and sensory are also intact. Normal speech, volume and content. Symmetrical smile. MUSCULOSKELETAL: Normal extremities with adequate strength and full range of motion. 1+ edema bilaterally LYMPHATICS: No significant lymphadenopathy is noted PSYCHIATRIC: Normal psychiatric evaluation. Course Vital Signs 07/24/19 07/24/19 13:47 15:52 Temperature 97.6 F Pulse Rate 92 89 Respiratory 18 18 Rate Blood Pressure 132/75 142/84 O2 Sat by Pulse 97 95 Oximetry Medical Decision Making - Medical Decision Making EKG shows paced rhythm at a rate of 91 bpm IL interval 288 QRSs on a 52 QT interval 434 QTC is 533. I repeated the troponin here in the troponin was 1.0. I spoke with cardiology he agreed to admit the patient I had the patient on heparin are and the patient had remained chest pain-free throughout the ED stay. I spoke with Dr. Lazaro he agreed to admit the patient admitted the patient wrote admitting orders continued heparin and aspirin and Nitropaste on the floor. - Lab Data Lab Results 07/24/19 Range/Units 14:13 Troponin I 1.080 H* (0.000-0.034) ng/mL Critical Care Time Critical Care Time: Yes Total Critical Care Time: 35 Disposition Clinical Impression: Acute non-ST elevation myocardial infarction (NSTEMI) Disposition: ADMITTED IP TO THIS HOSP Referrals: Sylvia Macias MD [Primary Care Provider] - 1-2 days Time of Disposition: 16:09
--- NOTE | 2019-07-24 14:59 | P.HPIM ---
History of Present Illness H&P Date: 07/24/19 Chief Complaint: Chest pain This is an 88-year-old male patient of Dr. Macias. Patient presented as a transfer from [facility] complaints of chest discomfort. Patient reports chest pain has been intermittent for 2 weeks. He describes pain as an aching pain that radiates across the shoulders, down his back and in his jaw. He notices that the episodes seem to occur after meals and last about 10-15 minutes. Patient reports nothing seems to relieve the pain he just has to wait for is to resolve. He has taken Tylenol for the pain. Patient denies shortness of breath at time chest pain. Troponin at [facility] was 0.3, no EKG changes could be determined due to the patient's paced rhythm. Patient reports discomfort in bilateral lower extremities with more discomfort noted in left. Patient denies chest pain currently. Patient denies shortness of breath. Patient denies fevers or recent illness. He denies nausea vomiting diarrhea. He denies urinary frequency or burning. Past medical history includes, biventricular pacer, diabetes mellitus type 2, hyperlipidemia, hypertension, hypothyroidism, psoriasis. Review of Systems Please refer to HPI otherwise unremarkable Past Medical History Past Medical History: Diabetes Mellitus, Hyperlipidemia, Hypertension, Skin Disorder Additional Past Medical History / Comment(s): See Dr Gonzalez's H&&P,PRP Skin di sorder History of Any Multi-Drug Resistant Organisms: None Reported Past Surgical History: Joint Replacement Additional Past Surgical History / Comment(s): right hip replacement Past Anesthesia/Blood Transfusion Reactions: No Reported Reaction Additional Past Anesthesia/Blood Transfusion Reaction / Comment(s): no problem with prior blood transfusion Past Psychological History: No Psychological Hx Reported Smoking Status: Never smoker Past Alcohol Use History: None Reported Additional Past Alcohol Use History / Comment(s): quit smoking approx 60 years ago during [place] War. Past Drug Use History: None Reported - Past Family History Mother Family Medical History: No Reported History Father Family Medical History: Cancer Medications and Allergies Home Medications Medication Instructions Recorded Confirmed Type Hydrochlorothiazide 25 mg PO DAILY 11/13/18 01/27/19 History ISOtretinoin [Myorisan] 30 mg PO TID 11/13/18 01/27/19 History Insulin Glargine,Hum.rec.anlog 22 units SQ HS 11/13/18 01/27/19 History [Lantus Solostar] Insulin Lispro [humaLOG Kwikpen] 14 units SQ AC-BRKFST 11/13/18 01/27/19 History Latanoprost/Pf [Latanoprost 0.005% 1 drop BOTH EYES HS 11/13/18 01/27/19 History Eye Drop] Levothyroxine Sodium [Synthroid] 112 mcg PO DAILY 11/13/18 01/27/19 History Lovastatin [Mevacor] 10 mg PO DAILY 11/13/18 01/27/19 History Pioglitazone [Actos] 30 mg PO DAILY 11/13/18 01/27/19 History Timolol 0.5% Ophth Soln [Timoptic 1 drop INTRAOCULA BID 11/13/18 01/27/19 History 0.5% Ophth Soln] metFORMIN HCL [Glucophage] 1,000 mg PO BID 11/13/18 01/27/19 History Acitretin 50 mg PO DAILY 11/14/18 01/27/19 History Atorvastatin [Lipitor] 10 mg PO DAILY 11/14/18 01/27/19 History Insulin Lispro [humaLOG Kwikpen] 5 unit SQ AC-LUNCH 11/14/18 01/27/19 History Insulin Lispro [humaLOG Kwikpen] 11 unit SQ AC-SUPPER 11/14/18 01/27/19 History amLODIPine [Norvasc] 5 mg PO DAILY 01/28/19 01/28/19 History Allergies Allergy/AdvReac Type Severity Reaction Status Date / Time No Known Allergies Allergy Verified 07/24/19 13:53 Physical Exam Vitals: Vital Signs Temp Pulse Resp BP Pulse Ox 07/24/19 13:47 97.6 F 92 18 132/75 97 Intake and Output 07/23/19 07/24/19 07/24/19 22:59 06:59 14:59 Other: Weight 83.461 kg Head normocephalic Neck supple Lungs clear to auscultation bilaterally no wheezing or crackles Heart regular rate and rhythm S1-S2, no rub or gallop Abdomen is soft nontender nondistended positive bowel sounds no h epatosplenomegaly Extremities, lower bilaterally swelling +2. Left with more discomfort noted in 2 small, healing sores on ankle with yellow scales. Neuro alert and orientated to 3 Assessment and Plan Assessment: 1. Chest pain. Troponin at [facility] 0.3. EKG changes detected due to paced rhythm. Order serial troponins every 6 hours. Cardiology consult on, awaiting recommendations. Per patient last stress test was completed in October. 2. Left lower extremity swelling. Will order venous Doppler 3. Biventricular pacemaker. Device placed 01/28/2019. Mobitz 1 block. 4. Diabetes mellitus type 2. 5. Hyperlipidemia 6. Hypertension essential 7. Hypothyroidism 8. Psoriasis
--- NOTE | 2019-07-24 15:38 | US ---
EXAMINATION TYPE: US venous doppler duplex LE LT DATE OF EXAM: 07/24/2019 2:56 PM COMPARISON: NONE CLINICAL HISTORY: left lower extremity swelling. SIDE PERFORMED: Left TECHNIQUE: The lower extremity deep venous system is examined utilizing real time linear array sonog blade with graded compression, doppler sonography and color-flow sonography. VESSELS IMAGED: External Iliac Vein (EIV) Common Femoral Vein Deep Femoral Vein Greater Saphenous Vein * Femoral Vein Popliteal Vein Small Saphenous Vein * Proximal Calf Veins (* superficial vessels) Left Leg: Negative for DVT IMPRESSION: 1. Left lower extremity ultrasound negative for deep venous thrombosis.
[2019-07-24] MEDS ORDERED: NITROGLYCERIN SL TABS 0.4 MG TAB SUBLINGUAL PRN (16:11)
[2019-07-24 16:16] LABS: ALT 26 U/L (21-72); AST 52 U/L (17-59); African American GFR (CKD) >90 (>60 ml/min/1.73 sqM); Albumin 4.2 g/dL (3.5-5.0); Alkaline Phosphatase 101 U/L (38-126); Anion Gap 10 mmol/L; Blood Urea Nitrogen 18 mg/dL (9-20); Calcium 9.6 mg/dL (8.4-10.2); Carbon Dioxide 25 mmol/L (22-30); Chloride 102 mmol/L (98-107); Glucose 277 mg/dL (74-99); Potassium 4.4 mmol/L (3.5-5.1); Sodium 137 mmol/L (137-145); Total Bilirubin 0.9 mg/dL (0.2-1.3); Total Protein 7.2 g/dL (6.3-8.2)
[2019-07-24 16:17] LABS: Basophils # (A) 0.1 k/uL (0-0.2); Basophils % (A) 2 %; Eosinophils # (A) 0.6 k/uL (0-0.7); Eosinophils % (A) 10 %; HGB 14.3 gm/dL (13.0-17.5); Lymphocytes # (A) 0.5 k/uL (1.0-4.8); Lymphocytes % (A) 7 %; MCH 29.6 pg (25.0-35.0); MCHC 31.8 g/dL (31.0-37.0); MCV 93.2 fL (80.0-100.0); Mean Platelet Volume 7.2; Monocytes # (A) 0.4 k/uL (0-1.0); Monocytes % (A) 6 %; Neutrophils # (A) 4.6 k/uL (1.3-7.7); Neutrophils % (A) 72 %; Platelet Count 345 k/uL (150-450); RBC 4.83 m/uL (4.30-5.90); RDW 14.9 % (11.5-15.5); WBC 6.4 k/uL (3.8-10.6)
[2019-07-24 17:20] LABS: Glucose,Whole Blood 257 mg/dL (75-99)
[2019-07-24] MEDS: INSULIN ASPART (NovoLOG) 100 UNIT/ML VIAL SQ SCH ×3 (17:38→20:28)
[2019-07-24] MEDS: NITROGLYCERIN OINT 1 INCH/GM PACKET TOPICAL SCH (17:38)
[2019-07-24] MEDS: ATORVASTATIN 10 MG TAB PO SCH (17:38)
[2019-07-24 20:12] LABS: Creatine Kinase MB 5.3 ng/mL (0.0-2.4)
[2019-07-24 20:21] LABS: Glucose,Whole Blood 251 mg/dL (75-99)
[2019-07-24] MEDS: LATANOPROST 0.005% OPHTH DROPS 2.5 ML BTL BOTH EYES SCH (20:28)
[2019-07-24] MEDS: INSULIN DETEMIR (LEVEMIR) 100 UNIT/ML SYR SQ SCH (20:28)
[2019-07-24] MEDS: TIMOLOL 0.5% OPHTH DROPS 5 ML BTL BOTH EYES SCH (20:28)
[2019-07-24] MEDS: HEPARIN SOD,PORK IN 0.45% NACL 25,000 UNIT in 0.45% NACL 1 250ML.BAG IV SCH (20:36)
[2019-07-24 20:40] LABS: Troponin I 2.2 ng/mL (0.000-0.034)
[2019-07-25 02:31] LABS: Basophils # (A) 0.1 k/uL (0-0.2); Basophils % (A) 1 %; Eosinophils # (A) 0.7 k/uL (0-0.7); Eosinophils % (A) 11 %; HCT 38.5 % (39.0-53.0); HGB 12.6 gm/dL (13.0-17.5); Lymphocytes # (A) 0.5 k/uL (1.0-4.8); Lymphocytes % (A) 8 %; MCH 30.5 pg (25.0-35.0); MCHC 32.6 g/dL (31.0-37.0); MCV 93.6 fL (80.0-100.0); Mean Platelet Volume 6.5; Monocytes # (A) 0.5 k/uL (0-1.0); Monocytes % (A) 8 %; Neutrophils % (A) 68 %; Platelet Count 335 k/uL (150-450); RBC 4.11 m/uL (4.30-5.90); RDW 14.9 % (11.5-15.5); WBC 5.9 k/uL (3.8-10.6)
[2019-07-25 03:02] LABS: Albumin 3.4 g/dL (3.5-5.0); Calcium 9.4 mg/dL (8.4-10.2); Potassium 3.6 mmol/L (3.5-5.1); Total Bilirubin 0.5 mg/dL (0.2-1.3); Total Protein 5.8 g/dL (6.3-8.2)
[2019-07-25 03:03] LABS: Creatine Kinase MB 4.2 ng/mL (0.0-2.4); Troponin I 2.28 ng/mL (0.000-0.034)
[2019-07-25] MEDS: LEVOTHYROXINE 112 MCG TAB PO SCH (06:41)
[2019-07-25] MEDS: NITROGLYCERIN OINT 1 INCH/GM PACKET TOPICAL SCH ×4 (06:41→18:20)
[2019-07-25 06:54] LABS: Glucose,Whole Blood 116 mg/dL (75-99)
[2019-07-25] MEDS: INSULIN ASPART (NovoLOG) 100 UNIT/ML VIAL SQ SCH ×7 (07:21→20:59)
[2019-07-25] MEDS: amLODIPine 5 MG TAB PO SCH (08:59)
[2019-07-25] MEDS ORDERED: ASPIRIN 325 MG TAB PO STA (09:00)
[2019-07-25] MEDS ORDERED: ATORVASTATIN 80 MG TAB PO STA (09:00)
[2019-07-25] MEDS ORDERED: ASPIRIN 325 MG TAB PO SCH (09:00)
[2019-07-25] MEDS ORDERED: ALPRAZolam 0.25 MG TAB PO PRN (09:00)
[2019-07-25] MEDS ORDERED: NITROGLYCERIN SL TABS 0.4 MG TAB SUBLINGUAL PRN ×2 (09:00→13:42)
[2019-07-25] MEDS ORDERED: ALPRAZolam 0.5 MG TAB PO PRN (09:00)
[2019-07-25] MEDS ORDERED: MELOXICAM 7.5 MG TAB PO SCH (09:00)
[2019-07-25] MEDS ORDERED: ATORVASTATIN 80 MG TAB PO SCH (09:00)
[2019-07-25] MEDS ORDERED: SODIUM CHLORIDE 0.9% 1,000 ML in EMPTY BAG 1 BAG IV ONE (09:00)
[2019-07-25] MEDS: HYDROCHLOROTHIAZIDE 50 MG TAB PO SCH (09:00)
[2019-07-25] MEDS ORDERED: ATORVASTATIN 10 MG TAB PO SCH (09:02)
--- NOTE | 2019-07-25 09:04 | P.CRDCN ---
History of Present Illness History of present illness: Please see full dictation by Kaylyn Painter Patient presented with angina like symptoms recurrent for the last 2 weeks worse since yesterday Abnormal cardiac enzymes Paced rhythm with a left bundle branch block like morphology but with ST-T segments suspicious for ischemia Plan Discussed with Dr. Kumar we'll proceed with coronary angiography today Continue IV heparin Metoprolol 50 g twice daily Atorvastatin 80 mg daily Aspirin Continue nitroglycerin Hold amlodipine and hydrochlorothiazide for now Further management thereafter Past Medical History Past Medical History: Diabetes Mellitus, Hyperlipidemia, Hypertension, Skin Disorder Additional Past Medical History / Comment(s): See Dr Gonzalez's H&&P,PRP Skin disorder History of Any Multi-Drug Resistant Organisms: None Reported Past Surgical History: Joint Replacement Additional Past Surgical History / Comment(s): right hip replacement Past Anesthesia/Blood Transfusion Reactions: No Reported Reaction Additional Past Anesthesia/Blood Transfusion Reaction / Comment(s): no problem with prior blood transfusion Past Psychological History: No Psychological Hx Reported Smoking Status: Former smoker Past Alcohol Use History: None Reported Additional Past Alcohol Use History / Comment(s): quit smoking approx 60 years ago during [place]. Past Drug Use History: None Reported - Past Family History Mother Family Medical History: No Reported History Father Family Medical History: Cancer Medications and Allergies Home Medications Medication Instructions Recorded Confirmed Type Insulin Glargine,Hum.rec.anlog 22 units SQ HS 11/13/18 07/24/19 History [Lantus Solostar] Latanoprost/Pf [Latanoprost 0.005% 1 drop BOTH EYES HS 11/13/18 07/24/19 History Eye Drop] Levothyroxine Sodium [Synthroid] 112 mcg PO DAILY 11/13/18 07/24/19 History Pioglitazone [Actos] 30 mg PO DAILY 11/13/18 07/24/19 History Timolol 0.5% Ophth Soln [Timoptic 1 drop BOTH EYES BID 11/13/18 07/24/19 History 0.5% Ophth Soln] metFORMIN HCL [Glucophage] 1,000 mg PO BID 11/13/18 07/24/19 History Acitretin 50 mg PO DAILY 11/14/18 07/24/19 History Atorvastatin [Lipitor] 10 mg PO DAILY 11/14/18 07/24/19 History amLODIPine [Norvasc] 5 mg PO DAILY 01/28/19 07/24/19 History Hydrochlorothiazide [Hydrodiuril] 50 mg PO DAILY 07/24/19 07/24/19 History Insulin Aspart [NovoLOG Flexpen] 5 units SQ AC-LUNCH 07/24/19 07/24/19 History Insulin Aspart [NovoLOG Flexpen] 11 units SQ AC-SUPPER 07/24/19 07/24/19 History Insulin Aspart [NovoLOG Flexpen] 14 units SQ AC-BRKFST 07/24/19 07/24/19 History Meloxicam [Mobic] 15 mg PO DAILY 07/24/19 07/24/19 History Allergies Allergy/AdvReac Type Severity Reaction Status Date / Time No Known Allergies Allergy Verified 07/24/19 15:39 Physical Exam Vitals: Vital Signs Temp Pulse Pulse Resp BP BP Pulse Ox 07/25/19 04:28 97.9 F 83 18 108/63 07/25/19 00:53 98.4 F 81 18 99/59 07/24/19 20:30 97.5 F L 83 18 107/57 07/24/19 15:52 89 18 142/84 95 07/24/19 13:47 97.6 F 92 18 132/75 97 Intake and Output 07/24/19 07/25/19 07/25/19 22:59 06:59 14:59 Intake Total 240 Balance 240 Intake: Oral 240 Other: Voiding Method Toilet Toilet # Voids 1 Weight 94.6 kg Results 07/25/19 02:17 07/25/19 02:17 Cardiac Enzymes 07/24/19 07/24/19 07/24/19 Range/Units 14:13 15:48 19:27 AST 52 (17-59) U/L CK-MB (CK-2) 5.3 H (0.0-2.4) ng/mL Troponin I 1.080 H* 2.200 H* (0.000-0.034) ng/mL 07/25/19 07/25/19 Range/Units 02:17 02:17 AST 30 (17-59) U/L CK-MB (CK-2) 4.2 H (0.0-2.4) ng/mL Troponin I 2.280 H* (0.000-0.034) ng/mL Coagulation 07/24/19 07/25/19 Range/Units 19:27 04:25 APTT 28.7 51.3 H (22.0-30.0) sec Lipids 07/25/19 Range/Units 02:17 Triglycerides 76 (<150) mg/dL Cholesterol 109 (<200) mg/dL HDL Cholesterol 37 L (40-60) mg/dL CBC 07/24/19 07/25/19 Range/Units 15:48 02:17 WBC 6.4 5.9 (3.8-10.6) k/uL RBC 4.83 4.11 L (4.30-5.90) m/uL Hgb 14.3 12.6 L (13.0-17.5) gm/dL Hct 45.0 38.5 L (39.0-53.0) % Plt Count 345 335 (150-450) k/uL Comprehensive Metabolic Panel 07/24/19 07/25/19 Range/Units 15:48 02:17 Sodium 137 138 (137-145) mmol/L Potassium 4.4 3.6 (3.5-5.1) mmol/L Chloride 102 103 (98-107) mmol/L Carbon Dioxide 25 29 (22-30) mmol/L BUN 18 22 H (9-20) mg/dL Creatinine 0.75 1.08 (0.66-1.25) mg/dL Glucose 277 H 128 H (74-99) mg/dL Calcium 9.6 9.4 (8.4-10.2) mg/dL AST 52 30 (17-59) U/L ALT 26 21 (21-72) U/L Alkaline Phosphatase 101 72 (38-126) U/L Total Protein 7.2 5.8 L (6.3-8.2) g/dL Albumin 4.2 3.4 L (3.5-5.0) g/dL Current Medications Generic Name Dose Route Start Last Admin Trade Name Freq PRN Reason Stop Dose Admin Alprazolam 0.25 mg 07/25/19 09:00 Xanax PO Q6HR PRN Mild Anxiety Alprazolam 0.5 mg 07/25/19 09:00 Xanax PO Q6HR PRN Moderate Anxiety Amlodipine Besylate 5 mg 07/25/19 09:00 07/25/19 08:59 Norvasc PO Not Given DAILY [facility] Aspirin 325 mg 07/25/19 09:00 Aspirin PO DAILY [facility] Aspirin 325 mg 07/25/19 09:00 Aspirin PO 07/25/19 09:01 ONCE STA Atorvastatin Calcium 80 mg 07/25/19 09:00 Lipitor PO DAILY [facility] Atorvastatin Calcium 80 mg 07/25/19 09:02 Lipitor PO DAILY [facility] Atorvastatin Calcium 80 mg 07/25/19 09:00 Lipitor PO 07/25/19 09:01 ONCE STA Hydrochlorothiazide 50 mg 07/25/19 09:00 07/25/19 09:00 Hydrodiuril PO Not Given DAILY [facility] Heparin Sodium/Sodium Chloride 250 mls @ 10.015 mls/hr 07/24/19 19:00 07/24/19 20:36 25,000 unit/ Sodium Chloride IV 12 units/kg/hr .Q24H JOSE ANTONIO 10.015 mls/hr Administration Protocol 12 UNITS/KG/HR Sodium Chloride 1,000 ml/ IV 1,000 mls @ 94.6 mls/hr 07/25/19 09:00 Solution IV 07/25/19 19:34 .[id number] ONE 1 ML/KG/HR Insulin Aspart 5 unit 07/25/19 12:30 Novolog SQ AC-LUNCH [facility] Insulin Aspart 11 unit 07/24/19 17:30 07/24/19 17:38 Novolog SQ 11 unit AC-SUPPER [facility] Administration Insulin Aspart 14 unit 07/25/19 07:30 07/25/19 07:21 Novolog SQ Not Given AC-BRKFST [facility] Insulin Aspart 0 unit 07/24/19 17:30 07/25/19 07:21 Novolog SQ Not Given ACHS [facility] Protocol Insulin Detemir 22 unit 07/24/19 21:00 07/24/19 20:28 Levemir SQ 22 unit HS [facility] Administration Latanoprost 1 drops 07/24/19 21:00 07/24/19 20:28 Xalatan 0.005% BOTH EYES 1 drops HS [facility] Administration Levothyroxine Sodium 112 mcg 07/25/19 06:30 07/25/19 06:41 Synthroid PO 112 mcg DAILY@0630 [facility] Administration Meloxicam 15 mg 07/25/19 09:00 Mobic PO DAILY [facility] Metoprolol Tartrate 50 mg 07/25/19 09:00 Lopressor PO BID JOSE ANTONIO Nitroglycerin 0.4 mg 07/24/19 16:11 Nitrostat SUBLINGUAL Q5M PRN Chest Pain Nitroglycerin 1 inch 07/24/19 18:00 07/25/19 06:41 Nitro-Bid Oint TOPICAL 1 inch Q6HR JOSE ANTONIO Administration Nitroglycerin 0.4 mg 07/25/19 09:00 Nitrostat SUBLINGUAL Q5M PRN Chest Pain Acitretin [Acitretin 50 mg 07/25/19 09:00 ] 50 Mg PO DAILY JOSE ANTONIO Pioglitazone HCl 30 mg 07/25/19 09:00 Actos PO DAILY [facility]SE ANTON[facility] Timolol Maleate 1 drops 07/24/19 21:00 07/24/19 20:28 Timoptic BOTH EYES 1 drops BID JOSE ANTONIO Administration Intake and Output 07/24/19 07/25/19 07/25/19 22:59 06:59 14:59 Intake Total 240 Balance 240 Intake: Oral 240 Other: Voiding Method Toilet Toilet # Voids 1 Weight 94.6 kg 07/25/19 02:17 07/25/19 02:17
[2019-07-25] MEDS: METOPROLOL TARTRATE 50 MG TAB PO SCH ×2 (09:11→20:43)
--- NOTE | 2019-07-25 10:00 | P.PN ---
Subjective Progress Note Date: 07/25/19 This is an 88-year-old male patient of Dr. Macias. Patient presented as a transfer from [facility] complaints of chest discomfort. Patient reports chest pain has been intermittent for 2 weeks. He describes pain as an aching pain that radiates across the shoulders, down his back and in his jaw. He n otices that the episodes seem to occur after meals and last about 10-15 minutes. Patient reports nothing seems to relieve the pain he just has to wait for is to resolve. He has taken Tylenol for the pain. Patient denies shortness of breath at time chest pain. Troponin at [facility] was 0.3, no EKG changes could be determined due to the patient's paced rhythm. Patient reports discom fort in bilateral lower extremities with more discomfort noted in left. Patient denies chest pain currently. Patient denies shortness of breath. Patient denies fevers or recent illness. He denies nausea vomiting diarrhea. He denies urinary frequency or burning. Past medical history includes, biventricular pacer, diabetes mellitus type 2, hyperlipidemia, hypertension, hypothyroidism, psoriasis. On 07/25/2019 patient is alert and oriented 3. Patient had elevated troponins throughout the night started on heparin drip. Planning cardiac catheterization today per cardiology. Patient did complain of shoulder plain intermittently throughout the night. Denies chest pain or shortness of breath. Denies nausea vomiting or diarrhea. Denies any urinary burning or frequency Objective - Vital Signs Vital signs: Vital Signs Temp 97.9 F 07/25/19 04:28 Pulse 83 07/25/19 04:28 Resp 18 07/25/19 04:28 BP 108/63 07/25/19 04:28 Pulse Ox 95 07/24/19 15:52 Intake & Output 07/24/19 07/25/19 07/25/19 18:59 06:59 18:59 Intake Total 240 Balance 240 Weight 83.461 kg 94.6 kg Intake: Oral 240 Other: Voiding Method Toilet # Voids 1 1 - Exam Head normocephalic Neck supple Lungs clear to auscultation bilaterally no wheezing or crackles Heart regular rate and rhythm S1-S2, no rub or gallop Abdomen is soft nontender nondistended positive bowel sounds no hepatosplenomegaly Extremities, lower bilaterally swelling +2. Left with more discomfort noted in 2 small, healing sores on ankle with yellow scales. Neuro alert and orientated to 3 - Labs CBC & Chem 7: 07/25/19 02:17 07/25/19 02:17 Labs: Abnormal Lab Results - Last 24 Hours (Table) 07/24/19 07/24/19 07/24/19 Range/Units 14:13 15:48 15:48 RBC (4.30-5.90) m/uL Hgb (13.0-17.5) gm/dL Hct (39.0-53.0) % Lymphocytes # 0.5 L (1.0-4.8) k/uL APTT (22.0-30.0) sec BUN (9-20) mg/dL Glucose 277 H (74-99) mg/dL POC Glucose (mg/dL) (75-99) mg/dL CK-MB (CK-2) (0.0-2.4) ng/mL Troponin I 1.080 H* (0.000-0.034) ng/mL Total Protein (6.3-8.2) g/dL Albumin (3.5-5.0) g/dL HDL Cholesterol (40-60) mg/dL 07/24/19 07/24/19 07/24/19 Range/Units 17:18 19:27 20:19 RBC (4.30-5.90) m/uL Hgb (13.0-17.5) gm/dL Hct (39.0-53.0) % Lymphocytes # (1.0-4.8) k/uL APTT (22.0-30.0) sec BUN (9-20) mg/dL Glucose (74-99) mg/dL POC Glucose (mg/dL) 257 H 251 H (75-99) mg/dL CK-MB (CK-2) 5.3 H (0.0-2.4) ng/mL Troponin I 2.200 H* (0.000-0.034) ng/mL Total Protein (6.3-8.2) g/dL Albumin (3.5-5.0) g/dL HDL Cholesterol (40-60) mg/dL 07/25/19 07/25/19 07/25/19 Range/Units 02:17 02:17 02:17 RBC 4.11 L (4.30-5.90) m/uL Hgb 12.6 L (13.0-17.5) gm/dL Hct 38.5 L (39.0-53.0) % Lymphocytes # 0.5 L (1.0-4.8) k/uL APTT (22.0-30.0) sec BUN 22 H (9-20) mg/dL Glucose 128 H (74-99) mg/dL POC Glucose (mg/dL) (75-99) mg/dL CK-MB (CK-2) 4.2 H (0.0-2.4) ng/mL Troponin I 2.280 H* (0.000-0.034) ng/mL Total Protein 5.8 L (6.3-8.2) g/dL Albumin 3.4 L (3.5-5.0) g/dL HDL Cholesterol 37 L (40-60) mg/dL 07/25/19 07/25/19 Range/Units 04:25 06:53 RBC (4.30-5.90) m/uL Hgb (13.0-17.5) gm/dL Hct (39.0-53.0) % Lymphocytes # (1.0-4.8) k/uL APTT 51.3 H (22.0-30.0) sec BUN (9-20) mg/dL Glucose (74-99) mg/dL POC Glucose (mg/dL) 116 H (75-99) mg/dL CK-MB (CK-2) (0.0-2.4) ng/mL Troponin I (0.000-0.034) ng/mL Total Protein (6.3-8.2) g/dL Albumin (3.5-5.0) g/dL HDL Cholesterol (40-60) mg/dL Assessment and Plan Assessment: 1. Chest pain with abnormal troponins. Troponin at [facility] 0.3. EKG changes detected due to paced rhythm. Order serial troponins every 6 hours. Cardiology consult on, awaiting recommendations. Per patient last stress test was completed in October. Troponins elevated at 1.080, 2.200 and 2.280. Patient was started on heparin drip. Discussed case with tucking machine operator planning cardiac catheterization today 2. Left lower extremity swelling. venous doppler negative for DVT 3. Biventricular pacemaker. Device placed 01/28/2019. Mobitz 1 block. 4. Diabetes mellitus type 2. Metformin on hold. Homans resume sliding scale coverage added hemoglobin A1c ordered 5. Hyperlipidemia. started on statin 6. Hypertension essential. Home medications resumed 7. Hypothyroidism. Synthroid resumed 8. Psoriasis. Patient follows with dermatology DVT prophylaxis heparin drip. GI prophylaxis Pepcid I performed an examination of the patient and discussed their management with the Nurse Practitioner. I have reviewed the Nurse Practitioner's notes and agree with the documented findings and plan of care
[2019-07-25] MEDS ORDERED: IV FLUID CONTINUATION 1,000 ML IV ONE (11:24)
[2019-07-25] MEDS: fentaNYL (PF) 50 MCG/ML 2 ML AMP IV ONE ×2 (11:28→13:10)
[2019-07-25] MEDS ORDERED: LIDOCAINE 1% INJ 10MG/ML (10 ML MDV) SQ ONE (11:30)
[2019-07-25] MEDS ORDERED: VERAPAMIL SYRINGE (5 MG/10 ML) INTRAARTER ONE (11:32)
[2019-07-25] MEDS ORDERED: LIDOCAINE 1% INJ 10MG/ML (20 ML MDV) SQ ONE (11:47)
[2019-07-25] MEDS ORDERED: ONDANSETRON 4 MG/2 ML VIAL IVP ONE (12:41)
[2019-07-25] MEDS ORDERED: BIVALIRUDIN BOLUS 250 MG/50 ML IV ONE (12:50)
[2019-07-25] MEDS ORDERED: BIVALIRUDIN 250 MG in SODIUM CHLORIDE 0.9% 50 ML IV ONE (12:53)
[2019-07-25] MEDS: MIDAZOLAM 2 MG/2 ML VIAL IV ONE ×2 (12:54→13:10)
[2019-07-25 12:55] LABS: Hemoglobin A1C 8.8 % (4.0-6.0)
[2019-07-25] MEDS: NITROGLYCERIN 1000MCG/10ML SYRINGE INTRACORON ONE ×2 (13:01→13:18)
[2019-07-25] MEDS ORDERED: CLOPIDOGREL 75 MG TAB PO ONE (13:06)
[2019-07-25] MEDS ORDERED: IOPAMIDOL-370 125ML BTL INJ ONE (13:07)
[2019-07-25] MEDS ORDERED: IOPAMIDOL-370 100ML BTL INJ ONE (13:21)
--- NOTE | 2019-07-25 13:39 | P.PN ---
Subjective This is Kaylyn Painter PA-C dictating a consult on this patient The patient was interviewed and examined by me as well as by Dr. Gonzalez Case discussed with Dr. 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 Gonzalez discussed the tape case with Dr. Kumar and will proceed with coronary angiogram today Continue IV heparin Continue metoprolol, atorvastatin, aspirin and nitroglycerin HPI Patient is an 88-year-old male with a past medical history significant for second-degree heart block status post permanent pacemaker implantation, diabetes , dyslipidemia, and hypothyroidism who was transferred here for further evaluation from [facility]. Follows with Dr. Gonzalez in the office. Patient states that for the last few days he has had left shoulder pain ache and off after eating. No chest pain or SOB with this. Yesterday he ate breakfast with his children and then experienced bilateral shoulder pain was accompanied by pain in his teeth, chest, and stomach. He was also nauseated. Denies associated shortness of breath or dizziness. He presented to [facility] for further evaluation and was transferred to [facility]. Upon presentation, EKG showed nonselective physiologic septal pacing with a left bundle branch block morphology with ST changes inferiorly suspicious for ischemia.. Troponins were elevated. Patient seen and examined sitting in his chair. States he continued to have shoulder pain overnight but does not currently have any shoulder pain. No chest pain, shortness of breath, palpitations or dizziness. ROS: No fevers, chills or rigors, no cough, phlegm or expectoration, no , vomiting or diarrhea, positive nausea no hematuria, dysuria, Positive for shoulder pain no strokes or seizures, no skin lesions. EXAMINATION: Temperature 98.1F, pulse 82, respirations 18, blood pressure 111/60, oxygen saturation 93% on room air Patient seen and examined resting in his chair, in no acute distress Lungs clear to auscultation bilaterally Heart is regular, normal S1 and S2, no murmurs noted No elevated JVD No lower extremity edema REVIEW OF LABS, ECG & MEDICAL DATA WBC 5.9, hemoglobin 12.6, platelets 335, potassium 3.6, BUN 2.2, creatinine 1.08 LDL 57 Troponin 2.28, 2.2, 1.08 Objective - Vital Signs Vital signs: Vital Signs Temp 98.1 F 07/25/19 08:20 Pulse 82 07/25/19 08:20 Resp 18 07/25/19 08:20 BP 111/60 07/25/19 08:20 Pulse Ox 95 07/24/19 15:52 Intake & Output 07/24/19 07/25/19 07/25/19 18:59 06:59 18:59 Intake Total 240 237 Balance 240 237 Weight 83.461 kg 94.6 kg Intake: IV 237 Oral 240 Other: Voiding Method Toilet # Voids 1 1 - Labs CBC & Chem 7: 07/25/19 02:17 07/25/19 02:17 Labs: Abnormal Lab Results - Last 24 Hours (Table) 07/24/19 07/24/19 07/24/19 Range/Units 14:13 15:48 15:48 RBC (4.30-5.90) m/uL Hgb (13.0-17.5) gm/dL Hct (39.0-53.0) % Lymphocytes # 0.5 L (1.0-4.8) k/uL APTT (22.0-30.0) sec BUN (9-20) mg/dL Glucose 277 H (74-99) mg/dL POC Glucose (mg/dL) (75-99) mg/dL Hemoglobin A1c (4.0-6.0) % CK-MB (CK-2) (0.0-2.4) ng/mL Troponin I 1.080 H* (0.000-0.034) ng/mL Total Protein (6.3-8.2) g/dL Albumin (3.5-5.0) g/dL HDL Cholesterol (40-60) mg/dL 07/24/19 07/24/19 07/24/19 Range/Units 15:48 17:18 19:27 RBC (4.30-5.90) m/uL Hgb (13.0-17.5) gm/dL Hct (39.0-53.0) % Lymphocytes # (1.0-4.8) k/uL APTT (22.0-30.0) sec BUN (9-20) mg/dL Glucose (74-99) mg/dL POC Glucose (mg/dL) 257 H (75-99) mg/dL Hemoglobin A1c 8.8 H (4.0-6.0) % CK-MB (CK-2) 5.3 H (0.0-2.4) ng/mL Troponin I 2.200 H* (0.000-0.034) ng/mL Total Protein (6.3-8.2) g/dL Albumin (3.5-5.0) g/dL HDL Cholesterol (40-60) mg/dL 07/24/19 07/25/19 07/25/19 Range/Units 20:19 02:17 02:17 RBC 4.11 L (4.30-5.90) m/uL Hgb 12.6 L (13.0-17.5) gm/dL Hct 38.5 L (39.0-53.0) % Lymphocytes # 0.5 L (1.0-4.8) k/uL APTT (22.0-30.0) sec BUN (9-20) mg/dL Glucose (74-99) mg/dL POC Glucose (mg/dL) 251 H (75-99) mg/dL Hemoglobin A1c (4.0-6.0) % CK-MB (CK-2) 4.2 H (0.0-2.4) ng/mL Troponin I 2.280 H* (0.000-0.034) ng/mL Total Protein (6.3-8.2) g/dL Albumin (3.5-5.0) g/dL HDL Cholesterol (40-60) mg/dL 07/25/19 07/25/19 07/25/19 Range/Units 02:17 04:25 06:53 RBC (4.30-5.90) m/uL Hgb (13.0-17.5) gm/dL Hct (39.0-53.0) % Lymphocytes # (1.0-4.8) k/uL APTT 51.3 H (22.0-30.0) sec BUN 22 H (9-20) mg/dL Glucose 128 H (74-99) mg/dL POC Glucose (mg/dL) 116 H (75-99) mg/dL Hemoglobin A1c (4.0-6.0) % CK-MB (CK-2) (0.0-2.4) ng/mL Troponin I (0.000-0.034) ng/mL Total Protein 5.8 L (6.3-8.2) g/dL Albumin 3.4 L (3.5-5.0) g/dL HDL Cholesterol 37 L (40-60) mg/dL
--- NOTE | 2019-07-25 13:41 | P.PCN ---
Date of Procedure: 07/25/19 Operative Findings: PERCUTANEOUS CORONARY INTERVENTION Performing physician Artem Pack M.D. Procedure performed 1. Successful stenting of the mid LAD using 3.5 x 18 mm Xience GAGANDEEP with an excellent angiographic results and reduction of stenosis from 90% to 0% 2. Successful stenting of the mid RCA using 3.0 x 12 mm Xience GAGANDEEP with an excellent angiographic results and reduction of stenosis from 90% to 0% Indication This is an 88-year-old gentleman with history of hypertension and dyslipidemia who presented to the hospital with chest discomfort concerning for angina. He was ruled in for acute non-ST elevation myocardial infarction. Because of that a heart catheterization was advised. The heart catheterization was performed by Dr. 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 He is not an ideal candidate for open heart surgery and because of that PCI was advised Approach Right common femoral artery. Complication None Level of sedation Moderate sedation and of 33 minutes Procedure description Please refer to diagnostic heart catheterization was performed by Dr. Kumar earlier today. Anticoagulation was initiated using Angiomax. Subsequently I did engage the left main using JL4 guide. I did wire the LAD using a run-through wire. Predilatation of the LAD was performed using 2.5 x 12 mm balloon before I deployed 3.5 by 18 mm Xience GAGANDEEP where the stent was positioned under fluoroscopy guidance and deployed under 10 tony for 20 seconds with the following angiogram showing excellent angiographic results. The stenosis was reduced from 90 to 0%. Subsequently for the right coronary artery I did engage the RCA using JR4 guide. I did wire it using the same run-through wire. I did predilatation using 2.5 x 12 mm balloon which was inflated under 14 tony for 20 seconds. I attempted advancing 3.0 x 12 mm stent but the stent won't cross the lesion in the mid RCA. Because of that I predilated again using 3.0 mm NC balloon which was inflated under 20 tony for 20 seconds. After that I was able to advance 3.0 x 12 mm Xience GAGANDEEP where the stent was positioned under fluoroscopy guidance and deployed under 14 tony for 20 seconds. The following angiogram showed an excellent angiographic results and the procedure was completed without any co mplications Postprocedure management Dual antiplatelet therapy Risk factors modification Follow-up with the patient
[2019-07-25] MEDS ORDERED: RX INFO: IV CONTRAST WAS GIVEN 1 EACH MISC MISCELLANE PRN (13:42)
[2019-07-25] MEDS ORDERED: ZOLPIDEM 5 MG TAB PO PRN (13:42)
[2019-07-25] MEDS ORDERED: MAG HYDROX/AL HYDROX/SIMETH 30 ML CUP PO PRN (13:42)
[2019-07-25] MEDS ORDERED: ATROPINE SULFATE 0.1 MG/ML 10ML SYRINGE IV PRN (13:42)
[2019-07-25] MEDS ORDERED: SODIUM CHLORIDE 0.9% 1,000 ML IV SCH (13:45)
[2019-07-25 14:37] LABS: Glucose,Whole Blood 130 mg/dL (75-99)
[2019-07-25] MEDS: PIOGLITAZONE 30 MG TAB PO SCH (14:47)
[2019-07-25] MEDS: TIMOLOL 0.5% OPHTH DROPS 5 ML BTL BOTH EYES SCH ×2 (14:47→20:43)
[2019-07-25] MEDS: ATORVASTATIN 10 MG TAB PO SCH (14:50)
[2019-07-25 15:33] VITALS: BMI 30.8
[2019-07-25 17:20] LABS: Glucose,Whole Blood 202 mg/dL (75-99)
[2019-07-25] MEDS: HYDROmorphone 0.5 MG/0.5 ML SYRINGE IVP PRN ×2 (18:18→23:55)
[2019-07-25] MEDS: HEPARIN SOD,PORK IN 0.45% NACL 25,000 UNIT in 0.45% NACL 1 250ML.BAG IV SCH (18:20)
[2019-07-25] MEDS: LATANOPROST 0.005% OPHTH DROPS 2.5 ML BTL BOTH EYES SCH (20:43)
[2019-07-25 20:55] LABS: Glucose,Whole Blood 205 mg/dL (75-99)
[2019-07-25] MEDS: INSULIN DETEMIR (LEVEMIR) 100 UNIT/ML SYR SQ SCH (20:59)
[2019-07-26] MEDS: NITROGLYCERIN OINT 1 INCH/GM PACKET TOPICAL SCH ×3 (00:26→12:06)
[2019-07-26 05:30] VITALS: TEMP 97.6
[2019-07-26 06:16] LABS: Glucose,Whole Blood 124 mg/dL (75-99)
[2019-07-26 06:18] LABS: Basophils % (A) 1 %; Eosinophils # (A) 0.5 k/uL (0-0.7); Eosinophils % (A) 8 %; HCT 38.4 % (39.0-53.0); HGB 12.1 gm/dL (13.0-17.5); Hypochromasia Slight; Lymphocytes # (A) 0.4 k/uL (1.0-4.8); Lymphocytes % (A) 6 %; MCH 29.9 pg (25.0-35.0); MCHC 31.4 g/dL (31.0-37.0); MCV 95.2 fL (80.0-100.0); Mean Platelet Volume 6.1; Monocytes # (A) 0.4 k/uL (0-1.0); Monocytes % (A) 7 %; Neutrophils # (A) 4.6 k/uL (1.3-7.7); Neutrophils % (A) 76 %; Platelet Count 319 k/uL (150-450); RBC 4.03 m/uL (4.30-5.90); RDW 14.9 % (11.5-15.5); WBC 6.1 k/uL (3.8-10.6)
[2019-07-26] MEDS: INSULIN ASPART (NovoLOG) 100 UNIT/ML VIAL SQ SCH ×4 (06:26→12:35)
[2019-07-26 06:30] LABS: Albumin 3.5 g/dL (3.5-5.0); Calcium 9.1 mg/dL (8.4-10.2); Potassium 4.1 mmol/L (3.5-5.1); Total Bilirubin 0.6 mg/dL (0.2-1.3); Total Protein 5.9 g/dL (6.3-8.2)
[2019-07-26] MEDS: LEVOTHYROXINE 112 MCG TAB PO SCH (06:30)
[2019-07-26] MEDS: HYDROmorphone 0.5 MG/0.5 ML SYRINGE IVP PRN (06:36)
[2019-07-26] MEDS ORDERED: ATORVASTATIN 80 MG TAB PO SCH (09:00)
[2019-07-26] MEDS ORDERED: ASPIRIN 325 MG TAB PO SCH (09:00)
[2019-07-26] MEDS ORDERED: FAMOTIDINE 20 MG TAB PO SCH (09:00)
[2019-07-26] MEDS: METOPROLOL TARTRATE 50 MG TAB PO SCH (09:06)
[2019-07-26] MEDS: HYDROCHLOROTHIAZIDE 50 MG TAB PO SCH (09:06)
[2019-07-26] MEDS: PIOGLITAZONE 30 MG TAB PO SCH (09:06)
[2019-07-26] MEDS: TIMOLOL 0.5% OPHTH DROPS 5 ML BTL BOTH EYES SCH (09:06)
[2019-07-26] MEDS: amLODIPine 5 MG TAB PO SCH (09:06)
[2019-07-26 09:17] VITALS: RESP 20
[2019-07-26 11:59] LABS: Glucose,Whole Blood 216 mg/dL (75-99)
[2019-07-26] MEDS ORDERED: CLOPIDOGREL 75 MG TAB PO SCH (12:00)
[2019-07-26 13:13] VITALS: BP 123/66; PULSE 66
--- NOTE | 2019-07-26 14:11 | P.PN ---
Subjective Progress Note Date: 07/26/19 This is an 88-year-old male patient of Dr. Gongora with past medical history of diabetes mellitus, hyperlipidemia, hypertension. Patient presented to the hospital with chest pain for 2 weeks and worsening. He was found to have abnormal cardiac enzymes and EKG was a paced rhythm with a left bundle branch block with ST-T segment suspicious for ischemia. Patient was initially started on IV heparin, Lopressor atorvastatin and aspirin. He underwent heart catheterization by Dr. Kumar followed by a PTCA with Dr. Pack with successful stenting of the mid LAD and mid RCA. Patient is currently seen one day post procedure. He denies having any chest pain or shortness of breath. No dizziness or lightheadedness. Groin is soft, no hematoma. Gen: This is an 88-year-old male. His temperature and appears comfortable and in no acute distress. Afebrile, heart rate 78, blood pressure 126/55, pulse ox 93% on room air HEENT: Head is atraumatic, normocephalic. Pupils equal, round. Sclerae is anicteric. NECK: Supple. No JVD. No lymphadenopathy. No thyromegaly. LUNGS: Clear to auscultation. No wheezes or rhonchi. No intercostal retractions. HEART: Regular rate and rhythm. Systolic murmur. ABDOMEN: Soft. Bowel sounds are present. No masses. No tenderness. EXTREMITIES: No pedal edema. No calf tenderness. NEUROLOGICAL: Patient is awake, alert and oriented x3. Cranial nerves 2 through 12 are grossly intact. Assessment: Acute NSTEMI HTN Hyperlipidemia DM Plan: Cleared for discharge home Continue plavix 75 mg daily, aspirin 81 mg daily, lopressor 50 mg bid, Resume metformin on Sunday Follow up with Dr. Gonzalez Nurse practitioner note has been reviewed, I agree with documented findings and plan of care. Patient was seen and examined. Objective - Vital Signs Vital signs: Vital Signs Temp 97.6 F 07/26/19 04:00 Pulse 66 07/26/19 12:00 Resp 20 07/26/19 12:00 BP 123/66 07/26/19 12:00 Pulse Ox 92 L 07/26/19 12:00 Intake & Output 07/25/19 07/26/19 07/26/19 18:59 06:59 18:59 Intake Total 597 120 480 Output Total 500 Balance 597 120 -20 Weight 94.6 kg 94.9 kg Intake: IV 237 Oral 360 120 480 Output: Urine 500 Other: Voiding Method Urinal # Voids 1 1 - Labs CBC & Chem 7: 07/26/19 05:50 07/26/19 05:50 Labs: Abnormal Lab Results - Last 24 Hours (Table) 07/25/19 07/25/19 07/25/19 Range/Units 14:35 17:08 20:53 RBC (4.30-5.90) m/uL Hgb (13.0-17.5) gm/dL Hct (39.0-53.0) % Lymphocytes # (1.0-4.8) k/uL BUN (9-20) mg/dL Glucose (74-99) mg/dL POC Glucose (mg/dL) 130 H 202 H 205 H (75-99) mg/dL Total Protein (6.3-8.2) g/dL 07/26/19 07/26/19 07/26/19 Range/Units 05:50 05:50 06:15 RBC 4.03 L (4.30-5.90) m/uL Hgb 12.1 L (13.0-17.5) gm/dL Hct 38.4 L (39.0-53.0) % Lymphocytes # 0.4 L (1.0-4.8) k/uL BUN 26 H (9-20) mg/dL Glucose 136 H (74-99) mg/dL POC Glucose (mg/dL) 124 H (75-99) mg/dL Total Protein 5.9 L (6.3-8.2) g/dL 07/26/19 Range/Units 11:49 RBC (4.30-5.90) m/uL Hgb (13.0-17.5) gm/dL Hct (39.0-53.0) % Lymphocytes # (1.0-4.8) k/uL BUN (9-20) mg/dL Glucose (74-99) mg/dL POC Glucose (mg/dL) 216 H (75-99) mg/dL Total Protein (6.3-8.2) g/dL
--- NOTE | 2019-07-26 14:38 | P.DS ---
Providers Date of admission: 07/24/19 16:11 Expected date of discharge: 07/26/19 Attending physician: Serene Lazaro Consults: 07/24/19 14:59 Consult Physician Routine Consulting Provider: Jem Purdy Consult Reason/Comments: chest pain Do you want consulting provider notified?: Yes 07/25/19 13:42 Consult Physician Routine Consulting Provider: [facility] Consult Reason/Comments: Post Interventional patient Do you want consulting provider notified?: Already Contacted Primary care physician: Sylvia Macias [facility] Course: Diagnosis on discharge: 1. Chest pain with abnormal troponins. Troponin at [facility] 0.3. EKG changes detected due to paced rhythm. During this admission patient had cardiac catheterization and stenting of the mid LAD and mid RCA by Dr. Sanchez 2. Left lower extremity swelling. venous doppler negative for DVT 3. Biventricular pacemaker. Device placed 01/28/2019. Mobitz 1 block. 4. Diabetes mellitus type 2. Metformin on hold. Homans resume sliding scale coverage added hemoglobin A1c ordered 5. Hyperlipidemia. started on statin 6. Hypertension essential. Home medications resumed 7. Hypothyroidism. Synthroid resumed 8. Psoriasis. Patient follows with dermatology DVT prophylaxis heparin drip. GI prophylaxis [facility] course: This is an 88-year-old male patient of Dr. Macias. Patient presented as a transfer from [facility] complaints of chest discomfort. Patient reports chest pain has been intermittent for 2 weeks. He describes pain as an aching pain that radiates across the shoulders, down his back and in his jaw. He notices that the episodes seem to occur after meals and last about 10-15 minutes. Patient reports nothing seems to relieve the pain he just has to wait for is to resolve. He has taken Tylenol for the pain. Patient denies shortness of breath at time chest pain. Troponin at [facility] was 0.3, no EKG changes could be determined due to the patient's paced rhythm. Patient reports discomfort in bilateral lower extremities with more discomfort noted in left. Patient denies chest pain currently. Patient denies shortness of breath. Patient denies fevers or recent illness. He denies nausea vomiting diarrhea. He denies urinary frequency or burning. Past medical history includes, biventricular pacer, diabetes mellitus type 2, hyperlipidemia, hypertension, hypothyroidism, psoriasis. On 07/25/2019 patient is alert and oriented 3. Patient had elevated troponins throughout the night started on heparin drip. Planning cardiac catheterization today per cardiology. Patient did complain of shoulder plain intermittently throughout the night. Denies chest pain or shortness of breath. Denies nausea vomiting or diarrhea. Denies any urinary burning or frequency On 07/26/2019 patient was seen and examined on the telemetry floor he is alert and oriented 3 in no apparent distress he was seen by cardiology and was cleared for discharge. There is no chest pain or shortness of breath patient is stable he will be discharged home today Plan - Discharge Summary New Discharge Prescriptions: New Aspirin EC [Ecotrin Low Dose] 81 mg PO DAILY #30 tablet. Atorvastatin [Lipitor] 80 mg PO DAILY #30 tab Metoprolol Tartrate [Lopressor] 50 mg PO BID #60 tab Nitroglycerin Sl Tabs [Nitrostat] 0.4 mg SUBLINGUAL Q5M PRN #25 tab PRN Reason: Chest Pain Clopidogrel [Plavix] 75 mg PO DAILY #30 tab Continue amLODIPine [Norvasc] 5 mg PO DAILY Hydrochlorothiazide [Hydrodiuril] 50 mg PO DAILY metFORMIN HCL [Glucophage] 1,000 mg PO BID #0 Discontinued Atorvastatin [Lipitor] 10 mg PO DAILY Meloxicam [Mobic] 15 mg PO DAILY No Action Insulin Glargine,Hum.rec.anlog [Lantus Solostar] 22 units SQ HS Levothyroxine Sodium [Synthroid] 112 mcg PO DAILY Latanoprost/Pf [Latanoprost 0.005% Eye Drop] 1 drop BOTH EYES HS Pioglitazone [Actos] 30 mg PO DAILY Timolol 0.5% Ophth Soln [Timoptic 0.5% Ophth Soln] 1 drop BOTH EYES BID Acitretin 50 mg PO DAILY Insulin Aspart [NovoLOG Flexpen] 14 units SQ AC-BRKFST Insulin Aspart [NovoLOG Flexpen] 5 units SQ AC-LUNCH Insulin Aspart [NovoLOG Flexpen] 11 units SQ AC-SUPPER Discharge Medication List Insulin Glargine,Hum.rec.anlog [Lantus Solostar] 22 units SQ HS 11/13/18 [History] Latanoprost/Pf [Latanoprost 0.005% Eye Drop] 1 drop BOTH EYES HS 11/13/18 [History] Levothyroxine Sodium [Synthroid] 112 mcg PO DAILY 11/13/18 [History] Pioglitazone [Actos] 30 mg PO DAILY 11/13/18 [History] Timolol 0.5% Ophth Soln [Timoptic 0.5% Ophth Soln] 1 drop BOTH EYES BID 11/13/18 [History] Acitretin 50 mg PO DAILY 11/14/18 [History] amLODIPine [Norvasc] 5 mg PO DAILY 01/28/19 [History] Hydrochlorothiazide [Hydrodiuril] 50 mg PO DAILY 07/24/19 [History] Insulin Aspart [NovoLOG Flexpen] 5 units SQ AC-LUNCH 07/24/19 [History] Insulin Aspart [NovoLOG Flexpen] 11 units SQ AC-SUPPER 07/24/19 [History] Insulin Aspart [NovoLOG Flexpen] 14 units SQ AC-BRKFST 07/24/19 [History] Aspirin EC [Ecotrin Low Dose] 81 mg PO DAILY #30 tablet.dr 07/26/19 [Rx] Atorvastatin [Lipitor] 80 mg PO DAILY #30 tab 07/26/19 [Rx] Clopidogrel [Plavix] 75 mg PO DAILY #30 tab 07/26/19 [Rx] Metoprolol Tartrate [Lopressor] 50 mg PO BID #60 tab 07/26/19 [Rx] Nitroglycerin Sl Tabs [Nitrostat] 0.4 mg SUBLINGUAL Q5M PRN #25 tab 07/26/19 [Rx] metFORMIN HCL [Glucophage] 1,000 mg PO BID #0 07/26/19 [Rx] Follow up Appointment(s)/Referral(s): Dillon Gonzalez MD [STAFF PHYSICIAN] - 1 Week Sylvia Macias MD [Primary Care Provider] - 1-2 days
--- NOTE | 2019-07-26 18:25 | P.CARDCATH ---
Date of Procedure: 07/25/19 Preoperative Diagnosis: Non-STEMI Postoperative Diagnosis: Multivessel disease Procedure(s) Performed: Left heart catheterization without left ventriculography Description of Procedure: HISTORY: This is a 88-year-old gentleman was admitted to the hospital with shoulder pain and evidence of non-STEMI. Patient is advised cardiac catheterization by Dr. Gonzalez. CONSENT:I have discussed the risks, benefits and alternative therapies for the above-mentioned procedure and for both sedation/analgesia as well as necessary blood product administration, if indicated, as they pertain to this patient. The patient has indicated understanding and acceptance of the risks and procedures discussed. PROCEDURE: Patient was brought to the lab in a fasting state. Patient was given some IV sedation. The right wrist is infiltrated with lidocaine and right radial artery was entered using Seldinger technique. A 6-Armenian sheath was left in place. The right Maciej catheter was advanced and selective injection of the right coronary artery was obtained. Left system could not be entered because of tortuosity. Subsequently cardiac catheterization was performed from the right groin approach. TR band was applied for hemostasis The right groin is infiltrated with lidocaine. The right femoral artery was entered using Seldinger technique. A 6-Armenian catheter was left in place and selective coronary arteriography was performed. Patient tolerated the procedure well. Patient went on to have stent placement of the LAD and right coronary artery by Dr. Sanchez. Conscious Sedation: Versed 0mg Fentanyl 12.5 g Duration 31minutes HEMODYNAMICS: The aortic pressure is about 160/70 SELECTIVE CORONARY ARTERIOGRAPHY: LEFT MAIN: Normal length and free of occlusive disease THE LEFT ANTERIOR DESCENDING CORONARY ARTERY:. His is a good caliber vessel giving rise to moderate caliber diagonal branch and septal branches. The mid LAD has about 70% lesion. The diagonal branch is diffuse disease with about 90% stenosis. This is small in caliber THE LEFT CIRCUMFLEX AND IS CORONARY ARTERY:. This gives rise to 2 OM branches. Both branches are small with diffuse disease with 90% stenosis THE RIGHT CORONARY ARTERY:. This is a good caliber vessel with about 90% eccentric lesion proximally. Diffuse plaque and moderate disease noted in the mid and distal RCA LEFT VENTRICULOGRAPHY: Not performed FINAL IMPRESSION:. Ultimately vessel disease with a diffuse stenosis. Critical lesions noted in mid LAD, proximal RCA and also in 2 OM branches PLAN:. Patient is going to have stent placement of the LAD and proximal RCA. Subsequently, patient will be treated with a maximal medical therapy. If necessary stent placement of the circumflex system to be considered PROGNOSIS: Guarded
== END 2019-07-26 15:40 | disposition home or self-care (01) | DRG 247 ==
LOC: EC 13:33 → 3SCARD 16:11
PROVIDERS: ADMIT Internal Medicine; ATTEND Internal Medicine
PROC: 027135Z Dilation of Coronary Artery, Two Arteries with Two Drug-eluting Intraluminal Devices, Percutaneous Approach (ICD-10-PCS; principal; 2019-07-25 14:10)
PROC: 4A023N7 Measurement of Cardiac Sampling and Pressure, Left Heart, Percutaneous Approach (ICD-10-PCS; 2019-07-25 14:10)
DX: I21.4 Non-ST elevation (NSTEMI) myocardial infarction (principal); I25.10 Atherosclerotic heart disease of native coronary artery without angina pectoris; E78.5 Hyperlipidemia, unspecified; E11.9 Type 2 diabetes mellitus without complications; E03.9 Hypothyroidism, unspecified; I10 Essential (primary) hypertension; Z96.641 Presence of right artificial hip joint; L40.9 Psoriasis, unspecified; I44.7 Left bundle-branch block, unspecified; I44.1 Atrioventricular block, second degree; Z87.891 Personal history of nicotine dependence; Z80.9 Family history of malignant neoplasm, unspecified; Z95.0 Presence of cardiac pacemaker; Z79.890 Hormone replacement therapy; Z79.899 Other long term (current) drug therapy; Z79.4 Long term (current) use of insulin; Z79.1 Long term (current) use of non-steroidal anti-inflammatories (NSAID); Z87.2 Personal history of diseases of the skin and subcutaneous tissue
CPT/HCPCS: 36415; 80053; 80061; 82550; 82553; 83036; 83735; 84484; 85025; 85730; 93005; 93458; 99291; C1874

== ENCOUNTER → 2019-11-11 | Outpatient (CLI) | payer MEDICARE ==
--- NOTE | 2019-11-11 10:24 | US ---
LOWER EXTREMITY VENOUS INSUFFICIENCY CLINICAL HISTORY: E11.621 TYPE 2 DIABETES MELLISTUS W/FOOT ULCER. SIDE PERFORMED: Bilateral 1) Color flow is present and patency is documented in the following vessels. No DVT or SVT is noted . EIV Common Femoral Vein Deep Femoral Vein Femoral Vein Popliteal Vein Proximal Calf Veins Greater Saph Vein Upper Small Saph Vein 2) There is venous reflux noted at the following venous levels: Right greater saph IMPRESSION: Venous reflux as noted. No evidence for leak. IMPRESSION: Grayscale, color doppler, spectral doppler imaging performed of the deep veins of the lo wer extremities. There is normal flow, compressibility, vascular waveforms.
--- NOTE | 2019-11-12 10:08 | P.ARTDOP ---
Arterial Doppler LOWER EXTREMITY ARTERIAL DOPPLER: DATE OF SERVICE: 11/11/2019 Reason for study: Left ankle and calf ulcers. Doppler waveforms: Multiphasic bilaterally throughout. Pulse volume recording: []. Pressure gradients: None. Ankle-brachial indices: Greater than 1 bilaterally. Toe pressures: 129 on the right, 132 on the left TBI right 1.06 and left 1.08 Impression: Normal study.
== END | disposition home or self-care (01) ==
LOC: RADUSWWP 08:59
PROVIDERS: ATTEND Nurse Practitioner Family
DX: I87.332 Chronic venous hypertension (idiopathic) with ulcer and inflammation of left lower extremity (principal); E11.621 Type 2 diabetes mellitus with foot ulcer; L97.922 Non-pressure chronic ulcer of unspecified part of left lower leg with fat layer exposed
CPT/HCPCS: 93922; 93970

== ENCOUNTER → 2019-11-27 | Outpatient (CLI) | payer MEDICARE ==
--- NOTE | 2019-11-27 15:47 | US ---
EXAMINATION TYPE: US venous doppler duplex LE RT DATE OF EXAM: 11/27/2019 3:38 PM COMPARISON: NONE CLINICAL HISTORY: M79.604 Pain in right leg. Right posterior leg pain radiating to lower leg x 1 week . Patient denies swelling. SIDE PERFORMED: Right TECHNIQUE: The lower extremity deep venous system is examined utilizing real time linear array sonog blade with graded compression, doppler sonography and color-flow sonography. VESSELS IMAGED: Common Femoral Vein Deep Femoral Vein Greater Saphenous Vein * Femoral Vein Popliteal Vein Small Saphenous Vein * Proximal Calf Veins (* superficial vessels) Right Leg: Negative for DVT. Couple of right groin lymph nodes are seen with larger medial node size = 2.0 x 1.3 x 0.9cm and is at patient's c/o pain. IMPRESSION: 1. Right lower extremity ultrasound negative for deep venous thrombosis. 2. Right inguinal lymph node appears prominent.
== END | disposition home or self-care (01) ==
LOC: RADUSWWP 15:00
PROVIDERS: ATTEND Thoracic Surgery (Cardiothoracic Vascular Surgery)
DX: I87.332 Chronic venous hypertension (idiopathic) with ulcer and inflammation of left lower extremity (principal); E11.621 Type 2 diabetes mellitus with foot ulcer; L97.922 Non-pressure chronic ulcer of unspecified part of left lower leg with fat layer exposed